=== PATIENT | female | born 1985 | race African-American/Black ===

== ENCOUNTER 2016-08-03 21:06 | Emergency (ER) | payer SELFPAY | END 2016-08-03 21:20 | disposition left against medical advice (07) | LOC: MW.ED 21:06 | DX: Z53.21 Procedure and treatment not carried out due to patient leaving prior to being seen by health care provider (principal) ==

== ENCOUNTER 2016-10-20 09:47 | Emergency (ER) | payer BC | END 2016-10-20 10:29 | disposition home or self-care (01) | LOC: MW.ED 09:47 | DX: Z53.21 Procedure and treatment not carried out due to patient leaving prior to being seen by health care provider (principal) ==

== ENCOUNTER 2016-10-26 11:50 | Emergency (ER) | payer BC ==
[2016-10-26] MEDS ORDERED: Sodium Chloride 0.9% 10 ML Syringe FLUSH PRN (12:19)
[2016-10-26] MEDS ORDERED: Sodium Chloride 0.9% 2.5 ML Syringe FLUSH PRN (12:19)
[2016-10-26 13:09] LABS: CHLORIDE,CL 108 mmol/L (98-110); SODIUM,NA 138 mmol/L (136-146)
[2016-10-26] MEDS ORDERED: Alum Hydrox/Mag Hydrox/Simeth 15 ML, Lidocaine 2% 5 ML PO ONE ×2 (14:13)
--- NOTE | 2016-10-26 15:20 | EDM.PDOC ---
ED HPI GENERAL MEDICAL PROBLEM - General Chief Complaint: Abdominal Pain Stated Complaint: ABDOMINAL PAIN Time Seen by Provider: 10/26/16 11:54 Source of Information: Reports: Patient History Limitations: Reports: No Limitations - History of Present Illness INITIAL COMMENTS - FREE TEXT/NARRATIVE: History of present illness: []She complains of upper and lower abdominal pain, bruising easily and vaginal discharge. Patient denies any bleeding gums when she brushes her teeth or nosebleeds. She denies any trauma state she has bruises on her legs just show up. She denies any pain, fevers, nausea, vomiting, diarrhea or urinary complaints. Patient has been taking Motrin recently for pain. Review of systems: As per history of present illness and below otherwise all systems reviewed and negative. Past medical history: As per history of present illness and as reviewed below otherwise noncontributory. Surgical history: As per history of present illness and as reviewed below otherwise noncontributory. Social history: No reported history of drug or alcohol abuse. Family history: As per history of present illness and as reviewed below otherwise noncontributory. Physical exam: General: Well developed, well nourished in NAD HEENT: Atraumatic, normocephalic, pupils reactive, negative for conjunctival pallor or scleral icterus, mucous membranes moist, throat clear, neck supple, nontender, trachea midline. Lungs: Clear to auscultation, breath sounds equal bilaterally, chest nontender. Heart: S1S2, regular, negative for clicks, rubs, or JVD. Abdomen: Soft, nondistended, epigastric tenderness without rebound or guarding. Negative for masses or hepatosplenomegaly. Negative for costovertebral tenderness. Pelvis: Stable nontender. Genitourinary: Pelvic cultures done no cervical motion tenderness noted Rectal: Deferred. Extremities: Atraumatic, negative for cords or calf pain. Neurovascular unremarkable. Neuro: Awake, alert, oriented. Cranial nerves II through XII unremarkable. Cerebellum unremarkable. Motor and sensory unremarkable throughout. Exam nonfocal. Diagnostics: []Labs within normal limits, vaginal cultures done Therapeutics: [] Impression: []Abdominal pain likely gastritis from NSAIDs Plan: []Follow-up primary care physician, Oswaldo for epigastric pain decrease and NSAID use Definitive disposition and diagnosis as appropriate pending reevaluation and review of above. Lower Abdomen Pain Score (Numeric/FACES): 7 - Related Data Allergies Allergy/AdvReac Type Severity Reaction Status Date / Time No Known Allergies Allergy Verified 10/26/16 12:13 Home Meds: Home Meds . [No Known Home Meds] 10/26/16 [History] Past Medical History HEENT History: Reports: None Cardiovascular History: Reports: None Respiratory History: Reports: None Gastrointestinal History: Reports: None Genitourinary History: Reports: None [employer] History: Reports: None Musculoskeletal History: Reports: None Neurological History: Reports: None Psychiatric History: Reports: None Endocrine/Metabolic History: Reports: None Hematologic History: Reports: None Immunologic History: Reports: None Oncologic (Cancer) History: Reports: None Dermatologic History: Reports: None - Past Surgical History Head Surgeries/Procedures: Reports: None HEENT Surgical History: Reports: None Cardiovascular Surgical History: Reports: None Respiratory Surgical History: Reports: None GI Surgical History: Reports: None Female Surgical History: Reports: None Endocrine Surgical History: Reports: None Neurological Surgical History: Reports: None Musculoskeletal Surgical History: Reports: None Oncologic Surgical History: Reports: None Dermatological Surgical History: Reports: None Social & Family History - Tobacco Use Smoking Status *Q: Current Every Day Smoker Years of Tobacco use: 5 Packs/Tins Daily: 0.2 - Caffeine Use Caffeine Use: Reports: Soda - Recreational Drug Use Recreational Drug Use: No ED ROS GENERAL - Review of Systems Review Of Systems: See Below (See history of present illness) ED EXAM, GI/ABD - Physical Exam Exam: See Below (See history of present illness) Course - Vital Signs Last Recorded V/S: Last Vital Signs Temp 36.2 C 10/26/16 12:08 Pulse 97 10/26/16 12:08 Resp 18 10/26/16 12:08 BP 140/118 H 10/26/16 12:08 Pulse Ox 98 10/26/16 12:08 - Orders/Labs/Meds Orders: Active Orders 24 hr Category Date Time Status CHLAMYDIA TRACHOMATIS/GC AMPLF Stat Lab 10/26/16 14:15 Received TRICH/SHAHRIAR/CAND BY DNA PROBE [MOLEC] Stat Lab 10/26/16 14:15 Received Sodium Chloride 0.9% [Saline Flush] Med 10/26/16 12:19 Active 10 ml FLUSH ASDIRECTED PRN Sodium Chloride 0.9% [Saline Flush] Med 10/26/16 12:19 Active 2.5 ml FLUSH ASDIRECTED PRN Saline Lock Insert [OM.PC] Stat Oth 10/26/16 12:18 Ordered Medication Orders Sodium Chloride (Saline Flush) 10 ml FLUSH ASDIRECTED PRN PRN Reason: Keep Vein Open Last Admin: 10/26/16 14:23 Dose: 10 ml Sodium Chloride (Saline Flush) 2.5 ml FLUSH ASDIRECTED PRN PRN Reason: Keep Vein Open Last Admin: 10/26/16 14:23 Dose: 2.5 ml Labs: Laboratory Tests 10/26/16 10/26/16 10/26/16 Range/Units 12:13 12:13 12:40 WBC 10.10 (4.0-11.0) K/uL RBC 4.69 (4.30-5.90) M/uL Hgb 14.4 (12.0-16.0) g/dL Hct 42.6 (36.0-46.0) % MCV 90.8 (80.0-98.0) fL MCH 30.7 (27.0-32.0) pg MCHC 33.8 (31.0-37.0) g/dL RDW Std Deviation 50.6 (28.0-62.0) fl RDW Coeff of Kirsten 15 (11.0-15.0) % Plt Count 269 (150-400) K/uL MPV 9.30 (7.40-12.00) fL Neut % (Auto) 59.0 (48.0-80.0) % Lymph % (Auto) 31.8 (16.0-40.0) % [place] % (Auto) 6.2 (0.0-15.0) % Eos % (Auto) 2.8 (0.0-7.0) % Baso % (Auto) 0.2 (0.0-1.5) % Neut # (Auto) 6.0 H (1.4-5.7) K/uL Lymph # (Auto) 3.2 H (0.6-2.4) K/uL [place] # (Auto) 0.6 (0.0-0.8) K/uL Eos # (Auto) 0.3 (0.0-0.7) K/uL Baso # (Auto) 0.0 (0.0-0.1) K/uL Nucleated RBC % 0.0 /100WBC Nucleated RBCs # 0 K/uL Sodium (136-146) mmol/L Potassium (3.5-5.1) mmol/L Chloride (98-110) mmol/L Carbon Dioxide (21-31) mmol/L BUN (6.0-23.0) mg/dL Creatinine (0.6-1.5) mg/dL Est Cr Clr Drug Dosing mL/min Estimated GFR (MDRD) ml/min Glucose (60-110) mg/dL Calcium (8.8-10.8) mg/dL Total Bilirubin (0.1-1.5) mg/dL AST (5-40) IU/L ALT (8-54) IU/L Alkaline Phosphatase (40-150) Total Protein (6.0-8.0) g/dL Albumin (3.5-5.0) g/dL Globulin (2.0-3.5) g/dL Albumin/Globulin Ratio (1.3-2.8) Lipase (7-80) U/L Urine Color YELLOW Urine Appearance CLEAR Urine pH 5.5 (5.0-8.0) Ur Specific [place] 1.025 (1.001-1.035) Urine Protein NEGATIVE (NEGATIVE) mg/dL Urine Glucose (UA) NEGATIVE (NEGATIVE) mg/dL Urine Ketones NEGATIVE (NEGATIVE) mg/dL Urine Occult Blood NEGATIVE (NEGATIVE) Urine Nitrite NEGATIVE (NEGATIVE) Urine Bilirubin NEGATIVE (NEGATIVE) Urine Urobilinogen 0.2 (<2.0) EU/dL Ur Leukocyte Esterase NEGATIVE (NEGATIVE) Urine RBC NONE SEEN (0-2/HPF) Urine WBC 0-1 (0-5/HPF) Ur Epithelial Cells OCCASIONAL (NONE-FEW) Urine Bacteria RARE (NEGATIVE) Urine HCG, Qual NEGATIVE (NEGATIVE) 10/26/16 Range/Units 12:40 WBC (4.0-11.0) K/uL RBC (4.30-5.90) M/uL Hgb (12.0-16.0) g/dL Hct (36.0-46.0) % MCV (80.0-98.0) fL MCH (27.0-32.0) pg MCHC (31.0-37.0) g/dL RDW Std Deviation (28.0-62.0) fl RDW Coeff of Kirsten (11.0-15.0) % Plt Count (150-400) K/uL MPV (7.40-12.00) fL Neut % (Auto) (48.0-80.0) % Lymph % (Auto) (16.0-40.0) % [place] % (Auto) (0.0-15.0) % Eos % (Auto) (0.0-7.0) % Baso % (Auto) (0.0-1.5) % Neut # (Auto) (1.4-5.7) K/uL Lymph # (Auto) (0.6-2.4) K/uL [place] # (Auto) (0.0-0.8) K/uL Eos # (Auto) (0.0-0.7) K/uL Baso # (Auto) (0.0-0.1) K/uL Nucleated RBC % /100WBC Nucleated RBCs # K/uL Sodium 138 (136-146) mmol/L Potassium 4.0 (3.5-5.1) mmol/L Chloride 108 (98-110) mmol/L Carbon Dioxide 23 (21-31) mmol/L BUN 8 (6.0-23.0) mg/dL Creatinine 0.8 (0.6-1.5) mg/dL Est Cr Clr Drug Dosing 86.37 mL/min Estimated GFR (MDRD) > 60.0 ml/min Glucose 93 (60-110) mg/dL Calcium 9.5 (8.8-10.8) mg/dL Total Bilirubin 0.5 (0.1-1.5) mg/dL AST 13 (5-40) IU/L ALT 12 (8-54) IU/L Alkaline Phosphatase 58 (40-150) Total Protein 7.4 (6.0-8.0) g/dL Albumin 4.0 (3.5-5.0) g/dL Globulin 3.4 (2.0-3.5) g/dL Albumin/Globulin Ratio 1.2 L (1.3-2.8) Lipase 28 (7-80) U/L Urine Color Urine Appearance Urine pH (5.0-8.0) Ur Specific [place] (1.001-1.035) Urine Protein (NEGATIVE) mg/dL Urine Glucose (UA) (NEGATIVE) mg/dL Urine Ketones (NEGATIVE) mg/dL Urine Occult Blood (NEGATIVE) Urine Nitrite (NEGATIVE) Urine Bilirubin (NEGATIVE) Urine Urobilinogen (<2.0) EU/dL Ur Leukocyte Esterase (NEGATIVE) Urine RBC (0-2/HPF) Urine WBC (0-5/HPF) Ur Epithelial Cells (NONE-FEW) Urine Bacteria (NEGATIVE) Urine HCG, Qual (NEGATIVE) Meds: Medications Generic Name Dose Route Start Last Admin Trade Name Freq PRN Reason Stop Dose Admin Sodium Chloride 10 ml 10/26/16 12:19 10/26/16 14:23 Saline Flush FLUSH 10 ml ASDIRECTED PRN Administration Keep Vein Open Sodium Chloride 2.5 ml 10/26/16 12:19 10/26/16 14:23 Saline Flush FLUSH 2.5 ml ASDIRECTED PRN Administration Keep Vein Open Discontinued Medications Generic Name Dose Route Start Last Admin Trade Name Freq PRN Reason Stop Dose Admin Al Hydroxide/Mg Hydroxide 15 0 ml 10/26/16 14:13 10/26/16 14:23 ml/ Lidocaine HCl 5 ml PO 10/26/16 14:14 1 each ONETIME ONE Administration Departure - Departure Time of Disposition: 15:25 Disposition: Home, Self-Care 01 Condition: Good Clinical Impression: Abdominal pain Qualifiers: Abdominal location: epigastric Qualified Code(s): R10.13 - Epigastric pain - Discharge Information Referrals: PCP,None [Primary Care Provider] - Forms: ED Department Discharge Additional Instructions: The following information is given to patients seen in the emergency department who are being discharged to home. This information is to outline your options for follow-up care. We provide all patients seen in our emergency department with a follow-up referral. The need for follow-up, as well as the timing and circumstances, are variable depending upon the specifics of your emergency department visit. If you don't have a primary care physician on staff, we will provide you with a referral. We always advise you to contact your personal physician following an emergency department visit to inform them of the circumstance of the visit and for follow-up with them and/or the need for any referrals to a consulting specialist. The emergency department will also refer you to a specialist when appropriate. This referral assures that you have the opportunity for follow-up care with a specialist. All of these measure are taken in an effort to provide you with optimal care, which includes your follow-up. Under all circumstances we always encourage you to contact your private physician who remains a resource for coordinating your care. When calling for follow-up care, please make the office aware that this follow-up is from your recent emergency room visit. If for any reason you are refused follow-up, please contact the [facility] Emergency Department at and asked to speak to the emergency department charge nurse. Decrease Motrin use, take Pepcid [id number] for abdominal pain follow-up with primary care [facility] [address] [place] [address] - My Orders Last 24 Hours: My Active Orders 10/26/16 12:18 Saline Lock Insert [OM.PC] Stat 10/26/16 12:19 Sodium Chloride 0.9% [Saline Flush] 10 ml FLUSH ASDIRECTED PRN Sodium Chloride 0.9% [Saline Flush] 2.5 ml FLUSH ASDIRECTED PRN 10/26/16 14:15 CHLAMYDIA TRACHOMATIS/GC AMPLF Stat TRICH/SHAHRIAR/CAND BY DNA PROBE [MOLEC] Stat - Assessment/Plan Last 24 Hours: My Active Orders 10/26/16 12:18 Saline Lock Insert [OM.PC] Stat 10/26/16 12:19 Sodium Chloride 0.9% [Saline Flush] 10 ml FLUSH ASDIRECTED PRN Sodium Chloride 0.9% [Saline Flush] 2.5 ml FLUSH ASDIRECTED PRN 10/26/16 14:15 CHLAMYDIA TRACHOMATIS/GC AMPLF Stat TRICH/SHAHRIAR/CAND BY DNA PROBE [MOLEC] Stat
[2016-10-26 17:18] VITALS: BP 131/92
== END 2016-10-26 16:45 | disposition home or self-care (01) ==
LOC: MW.ED 11:50
DX: N76.0 Acute vaginitis (principal); R10.13 Epigastric pain; F17.210 Nicotine dependence, cigarettes, uncomplicated
CPT/HCPCS: 36415; 80053; 81001; 81025; 83690; 85025; 87480; 87491; 87510; 87591; 87660; 99284; A9270; 99283

== ENCOUNTER 2017-01-19 17:43 | Emergency (ER) | payer SELFPAY | END 2017-01-19 18:21 | disposition left against medical advice (07) | LOC: MW.ED 17:43 | DX: Z53.21 Procedure and treatment not carried out due to patient leaving prior to being seen by health care provider (principal) ==

== ENCOUNTER 2017-01-21 09:24 | Emergency (ER) | payer SELFPAY ==
[2017-01-21] MEDS ORDERED: Ketorolac 30 MG/ML SDV IVPUSH ONE (09:34)
[2017-01-21] MEDS ORDERED: Ondansetron 4 MG/2 ML SDV IVPUSH ONE (09:34)
[2017-01-21] MEDS ORDERED: Sodium Chloride 0.9% 1,000 ML IV ONE (09:34)
--- NOTE | 2017-01-21 09:35 | EDM.PDOC ---
ED HPI GENERAL MEDICAL PROBLEM - General Chief Complaint: Abdominal Pain Stated Complaint: ABDOMINAL PAIN Time Seen by Provider: 01/21/17 09:35 Source of Information: Reports: Patient - History of Present Illness INITIAL COMMENTS - FREE TEXT/NARRATIVE: HISTORY AND PHYSICAL: History of present illness: [Patient is with right upper and lower quadrant increasing in severity today she rated an 8 out of 10 no radiation, some association with food but no clear association with greasy food. She has been in a couple of times to the emergency room for vague abdominal pain over the last several months with no clear diagnosis. No fever nausea vomiting chills sweats no chest pain shortness breath headache dizziness palpitation no bowel or urine symptoms ] Review of systems: As per history of present illness and below otherwise all systems reviewed and negative. Past medical history: As per history of present illness and as reviewed below otherwise noncontributory. Surgical history: As per history of present illness and as reviewed below otherwise noncontributory. Social history: No reported history of drug or alcohol abuse. Family history: As per history of present illness and as reviewed below otherwise noncontributory. Physical exam: HEENT: Atraumatic, normocephalic, pupils reactive, negative for conjunctival pallor or scleral icterus, mucous membranes moist, throat clear, neck supple, nontender, trachea midline. Lungs: Clear to auscultation, breath sounds equal bilaterally, chest nontender. Heart: S1S2, regular, negative for clicks, rubs, or JVD. Abdomen: Soft, nondistended, tenderness on deep palpation right upper quadrant as well as right lower quadrant no guarding or rebound. Negative for masses or hepatosplenomegaly. Negative for costovertebral tenderness. Pelvis: Stable nontender. Genitourinary: Deferred. Rectal: Deferred. Extremities: Atraumatic, negative for cords or calf pain. Neurovascular unremarkable. Neuro: Awake, alert, oriented. Cranial nerves II through XII unremarkable. Cerebellum unremarkable. Motor and sensory unremarkable throughout. Exam nonfocal. Diagnostics: []CBC CMP amylase lipase UA hCG CT abdomen pelvis with contrast Abdomen Limited to evaluate gallbladder and right kidney Ultrasound gallbladder as well as right kidney Therapeutics: []Normal saline 1 L bolus Zofran 8 mg IV Toradol 30 mg IV Aspirin 324 mg now and daily Follow-up with Dr. Du urology 6-8 weeks Follow-up with Dr. 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 right upper quad Pain Score (Numeric/FACES): 8 - Related Data Allergies Allergy/AdvReac Type Severity Reaction Status Date / Time No Known Allergies Allergy Verified 01/21/17 09:36 Home Meds: Home Meds . [No Known Home Meds] 01/21/17 [History] Past Medical History HEENT History: Reports: None Cardiovascular History: Reports: None Respiratory History: Reports: None Gastrointestinal History: Reports: None Genitourinary History: Reports: None RAIL LAYER History: Reports: None Musculoskeletal History: Reports: None Neurological History: Reports: None Psychiatric History: Reports: None Endocrine/Metabolic History: Reports: None Hematologic History: Reports: None Immunologic History: Reports: None Oncologic (Cancer) History: Reports: None Dermatologic History: Reports: None - Past Surgical History Head Surgeries/Procedures: Reports: None HEENT Surgical History: Reports: None Cardiovascular Surgical History: Reports: None Respiratory Surgical History: Reports: None GI Surgical History: Reports: None Female Surgical History: Reports: None Endocrine Surgical History: Reports: None Neurological Surgical History: Reports: None Musculoskeletal Surgical History: Reports: None Oncologic Surgical History: Reports: None Dermatological Surgical History: Reports: None Social & Family History - Tobacco Use Smoking Status *Q: Current Every Day Smoker Years of Tobacco use: 5 Packs/Tins Daily: 0.2 - Caffeine Use Caffeine Use: Reports: Soda - Recreational Drug Use Recreational Drug Use: No ED ROS GENERAL - Review of Systems Review Of Systems: ROS reveals no pertinent complaints other than HPI. ED EXAM, GENERAL - Physical Exam Exam: See Below Course - Vital Signs Last Recorded V/S: Last Vital Signs Temp 98.3 F 01/21/17 09:37 Pulse 89 01/21/17 12:25 Resp 16 01/21/17 12:25 BP 131/86 01/21/17 12:25 Pulse Ox 97 01/21/17 12:25 - Orders/Labs/Meds Orders: Active Orders 24 hr Category Date Time Status EKG Documentation Completion [RC] STAT Care 01/21/17 12:22 Active Abdomen Ltd [US] Stat Exams 01/21/17 12:07 Taken Abdomen Pelvis w Cont [CT] Stat Exams 01/21/17 10:41 Taken CULTURE URINE [RM] Stat Lab 01/21/17 09:50 Received Aspirin Med 01/21/17 14:50 Once 325 mg PO ONETIME ONE Labs: Laboratory Tests 01/21/17 01/21/17 01/21/17 Range/Units 09:49 09:49 09:49 WBC 13.82 H (4.0-11.0) K/uL RBC 4.48 (4.30-5.90) M/uL Hgb 13.7 (12.0-16.0) g/dL Hct 40.8 (36.0-46.0) % MCV 91.1 (80.0-98.0) fL MCH 30.6 (27.0-32.0) pg MCHC 33.6 (31.0-37.0) g/dL RDW Std Deviation 49.9 (28.0-62.0) fl RDW Coeff of Kirsten 15 (11.0-15.0) % Plt Count 287 (150-400) K/uL MPV 9.40 (7.40-12.00) fL Neut % (Auto) 72.6 (48.0-80.0) % Lymph % (Auto) 19.6 (16.0-40.0) % [place] % (Auto) 6.5 (0.0-15.0) % Eos % (Auto) 1.2 (0.0-7.0) % Baso % (Auto) 0.1 (0.0-1.5) % Neut # (Auto) 10.0 H (1.4-5.7) K/uL Lymph # (Auto) 2.7 H (0.6-2.4) K/uL Nicol[place] # (Auto) 0.9 H (0.0-0.8) K/uL Eos # (Auto) 0.2 (0.0-0.7) K/uL Baso # (Auto) 0.0 (0.0-0.1) K/uL Nucleated RBC % 0.0 /100WBC Nucleated RBCs # 0 K/uL Sodium 140 (136-146) mmol/L Potassium 4.8 (3.5-5.1) mmol/L Chloride 108 (98-110) mmol/L Carbon Dioxide 23 (21-31) mmol/L BUN 9 (6.0-23.0) mg/dL Creatinine 0.8 (0.6-1.5) mg/dL Est Cr Clr Drug Dosing 86.37 mL/min Estimated GFR (MDRD) > 60.0 ml/min Glucose 98 (60-110) mg/dL Calcium 9.4 (8.8-10.8) mg/dL Total Bilirubin 0.7 (0.1-1.5) mg/dL AST 25 (5-40) IU/L ALT 19 (8-54) IU/L Alkaline Phosphatase 47 (40-150) Lactate Dehydrogenase 290 H (125-220) IU/L Creatine Kinase (9-236) IU/L CK-MB (CK-2) (0-6.6) ng/ml Troponin I (0.0-0.29) NG/ML Total Protein 7.2 (6.0-8.0) g/dL Albumin 3.8 (3.5-5.0) g/dL Globulin 3.4 (2.0-3.5) g/dL Albumin/Globulin Ratio 1.1 L (1.3-2.8) Amylase 43 (10-90) U/L Lipase 23 (7-80) U/L Urine Color Urine Appearance Urine pH (5.0-8.0) Ur Specific [place] (1.001-1.035) Urine Protein (NEGATIVE) mg/dL Urine Glucose (UA) (NEGATIVE) mg/dL Urine Ketones (NEGATIVE) mg/dL Urine Occult Blood (NEGATIVE) Urine Nitrite (NEGATIVE) Urine Bilirubin (NEGATIVE) Urine Urobilinogen (<2.0) EU/dL Ur Leukocyte Esterase (NEGATIVE) Urine RBC (0-2/HPF) Urine WBC (0-5/HPF) Ur Epithelial Cells (NONE-FEW) Urine Bacteria (NEGATIVE) Urine Mucus (NONE-MOD) Urine HCG, Qual (NEGATIVE) 01/21/17 01/21/17 01/21/17 Range/Units 09:49 09:50 09:50 WBC (4.0-11.0) K/uL RBC (4.30-5.90) M/uL Hgb (12.0-16.0) g/dL Hct (36.0-46.0) % MCV (80.0-98.0) fL MCH (27.0-32.0) pg MCHC (31.0-37.0) g/dL RDW Std Deviation (28.0-62.0) fl RDW Coeff of Kirsten (11.0-15.0) % Plt Count (150-400) K/uL MPV (7.40-12.00) fL Neut % (Auto) (48.0-80.0) % Lymph % (Auto) (16.0-40.0) % Nicollet % (Auto) (0.0-15.0) % Eos % (Auto) (0.0-7.0) % Baso % (Auto) (0.0-1.5) % Neut # (Auto) (1.4-5.7) K/uL Lymph # (Auto) (0.6-2.4) K/uL Nicol[place] # (Auto) (0.0-0.8) K/uL Eos # (Auto) (0.0-0.7) K/uL Baso # (Auto) (0.0-0.1) K/uL Nucleated RBC % /100WBC Nucleated RBCs # K/uL Sodium (136-146) mmol/L Potassium (3.5-5.1) mmol/L Chloride (98-110) mmol/L Carbon Dioxide (21-31) mmol/L BUN (6.0-23.0) mg/dL Creatinine (0.6-1.5) mg/dL Est Cr Clr Drug Dosing mL/min Estimated GFR (MDRD) ml/min Glucose (60-110) mg/dL Calcium (8.8-10.8) mg/dL Total Bilirubin (0.1-1.5) mg/dL AST (5-40) IU/L ALT (8-54) IU/L Alkaline Phosphatase (40-150) Lactate Dehydrogenase (125-220) IU/L Creatine Kinase 76 (9-236) IU/L CK-MB (CK-2) 0.5 (0-6.6) ng/ml Troponin I < 0.10 (0.0-0.29) NG/ML Total Protein (6.0-8.0) g/dL Albumin (3.5-5.0) g/dL Globulin (2.0-3.5) g/dL Albumin/Globulin Ratio (1.3-2.8) Amylase (10-90) U/L Lipase (7-80) U/L Urine Color YELLOW Urine Appearance CLEAR Urine pH 6.0 (5.0-8.0) Ur Specific [place] 1.025 (1.001-1.035) Urine Protein NEGATIVE (NEGATIVE) mg/dL Urine Glucose (UA) NEGATIVE (NEGATIVE) mg/dL Urine Ketones NEGATIVE (NEGATIVE) mg/dL Urine Occult Blood NEGATIVE (NEGATIVE) Urine Nitrite NEGATIVE (NEGATIVE) Urine Bilirubin NEGATIVE (NEGATIVE) Urine Urobilinogen 0.2 (<2.0) EU/dL Ur Leukocyte Esterase NEGATIVE (NEGATIVE) Urine RBC 0-1 (0-2/HPF) Urine WBC 0-1 (0-5/HPF) Ur Epithelial Cells OCCASIONAL (NONE-FEW) Urine Bacteria FEW (NEGATIVE) Urine Mucus LIGHT (NONE-MOD) Urine HCG, Qual NEGATIVE (NEGATIVE) Meds: Medications Discontinued Medications Generic Name Dose Route Start Last Admin Trade Name Krystina PRN Reason Stop Dose Admin Sodium Chloride 1,000 mls @ 999 mls/hr 01/21/17 09:34 01/21/17 10:00 Normal Saline IV 01/21/17 10:34 999 mls/hr STAT ONE Administration Iopamidol 100 ml 01/21/17 11:12 01/21/17 11:15 Isovue-370 (76%) IVPUSH 01/21/17 11:13 100 ml ONETIME STA Administration Ketorolac Tromethamine 30 mg 01/21/17 09:34 01/21/17 09:59 Toradol IVPUSH 01/21/17 09:35 30 mg ONETIME ONE Administration Ondansetron HCl 8 mg 01/21/17 09:34 01/21/17 09:59 Zofran IVPUSH 01/21/17 09:35 8 mg ONETIME ONE Administration Departure - Departure Time of Disposition: 14:50 Disposition: Home, Self-Care 01 Condition: Good Clinical Impression: Renal infarct Abdominal pain Qualifiers: Abdominal location: epigastric Qualified Code(s): R10.13 - Epigastric pain - Discharge Information Referrals: PCP,Unknown [Primary Care Provider] - Forms: ED Department Discharge Additional Instructions: Nursing staff to arrange HIDA scan as well as follow-up with Dr. Josefina general surgery post HIDA scan Sodium referral to follow-up with Dr. Du urology in 6-[address] to evaluate right kidney Recommend aspirin 325 mg by mouth daily, follow-up with Dr. Du urology for further recommendations as above From a gallbladder standpoint recommend bland diet no greasy food Another scanning past the HIDA scan is discussed will be scheduled for you and you will be following with Dr. Rocha general surgeon these appointments should be arranged for you via ER referral Return if symptoms persist or worsen or new concerning symptoms develop [facility] - General Surgery Professional Building [address] [place] [address], [address] [place] [address] [facility] - Urology [address] [place] [id number] The following information is given to patients seen in the emergency department who are being discharged to home. This information is to outline your options for follow-up care. We provide all patients seen in our emergency department with a follow-up referral. The need for follow-up, as well as the timing and circumstances, are variable depending upon the specifics of your emergency department visit. If you don't have a primary care physician on staff, we will provide you with a referral. We always advise you to contact your personal physician following an emergency department visit to inform them of the circumstance of the visit and for follow-up with them and/or the need for any referrals to a consulting specialist. The emergency department will also refer you to a specialist when appropriate. This referral assures that you have the opportunity for follow-up care with a specialist. All of these measure are taken in an effort to provide you with optimal care, which includes your follow-up. Under all circumstances we always encourage you to contact your private physician who remains a resource for coordinating your care. When calling for follow-up care, please make the office aware that this follow-up is from your recent emergency room visit. If for any reason you are refused follow-up, please contact the [facility] emergency department at and asked to speak to the emergency department charge nurse. - My Orders Last 24 Hours: My Active Orders 01/21/17 09:50 CULTURE URINE [RM] Stat 01/21/17 10:41 Abdomen Pelvis w Cont [CT] Stat 01/21/17 12:07 Abdomen Ltd [US] Stat 01/21/17 12:22 EKG Documentation Completion [RC] STAT 01/21/17 14:50 Aspirin 325 mg PO ONETIME ONE - Assessment/Plan Last 24 Hours: My Active Orders 01/21/17 09:50 CULTURE URINE [RM] Stat 01/21/17 10:41 Abdomen Pelvis w Cont [CT] Stat 01/21/17 12:07 Abdomen Ltd [US] Stat 01/21/17 12:22 EKG Documentation Completion [RC] STAT 01/21/17 14:50 Aspirin 325 mg PO ONETIME ONE
[2017-01-21 10:19] LABS: CHLORIDE,CL 108 mmol/L (98-110); SODIUM,NA 140 mmol/L (136-146)
[2017-01-21] MEDS ORDERED: Iopamidol 755 Mg/ML 100 ML Bottle IVPUSH STA (11:12)
[2017-01-21] MEDS ORDERED: Aspirin 325 MG Tab PO ONE (14:50)
[2017-01-21 15:29] VITALS: BP 133/89
--- NOTE | 2017-01-22 14:48 | CT ---
EXAM DATE: 01/21/17 PATIENT'S AGE: 31 Patient: XENA HONG Facility: [place], [place] Site . Site : 1985 Study: CT Abdomen/Pelvis [id number] 11:31:32 AM Ordering Physician: Joby Evans Final Report: HISTORY: Right-sided abdominal pain. TECHNIQUE: Intravenous contrast enhanced CT of the abdomen and pelvis. 100 mL of Isovue- 370 intravenous contrast administered. COMPARISON: No prior. FINDINGS: There is no focal liver parenchymal abnormality. No biliary ductal dilatation. Gallbladder does not appear overly distended. Spleen size within normal limits. Adrenal glands are normal. No focal pancreatic abnormality or peripancreatic inflammatory change. - There is an area of wedge-shaped decreased enhancement involving the inferior pole of the right kidney. Differential considerations include pyelonephritis versus renal infarct. Correlation with urinalysis is recommended. Right renal artery and radial vein appear grossly patent. Left kidney enhances normally. There is no hydronephrosis. Urinary bladder is not well distended and not well evaluated by CT. - There is no small bowel obstruction. No appendicitis. No diverticulitis or definite colitis. No abdominal or pelvic fluid collection. No free air. No abdominal aortic aneurysm. The mesenteric and renal vasculature appears patent. - No acute bony abnormality. - Lung bases are grossly clear. No pleural effusion. IMPRESSION: 1. Wedge-shaped area of decreased attenuation involving the inferior pole of the right kidney with differential considerations including pyelonephritis versus renal artery infarct. Correlation with urinalysis is recommended. Pyelonephritis is statistically more likely in a patient this age. Renal vasculature appears patent. No hydronephrosis. 2. Normal appendix. 3. No other acute process within the abdomen or pelvis. Dictated by Saul Dias MD @ 01/21/2017 11:50:24 AM Dictated by: Saul Dias MD @ 01/21/2017 11:50:29 (Electronic Signature) Report Signed by Proxy. [facility]OSPITALIvone
--- NOTE | 2017-01-22 14:57 | US ---
EXAM DATE: 01/21/17 PATIENT'S AGE: 31 Patient: XENA HONG Facility: [place], [place] Site . Site : 1985 Study: US Abdomen [id number] 1:00:30 PM Ordering Physician: Joby Evans Final Report: HISTORY: Right upper quadrant pain. Abnormal appearance of the inferior aspect of the right kidney at CT. TECHNIQUE: Limited abdominal ultrasound. FINDINGS: There are no gallstones, gallbladder wall thickening or pericholecystic fluid. Gallbladder does not appear excessively distended. There is no intrahepatic biliary ductal dilatation. The extrahepatic bile duct measures 6 mm which is upper limits of normal. No focal liver mass. No abnormality involving the visualized portions of the pancreas. Right kidney measures approximately 10.3 cm in size. There is no right renal mass or hydronephrosis. No alteration of the echogenicity of the inferior aspect of the right kidney seen by ultrasound. IMPRESSION: 1. The area of decreased attenuation involving the right kidney seen on the prior CT is inapparent by ultrasound. Differential considerations still remain pyelonephritis versus small renal infarct based on the CT appearance. 2. Normal gallbladder. 3. Extrahepatic bile duct diameter is upper limits of normal. There is no intrahepatic biliary ductal dilatation. Dictated by Saul Dias MD @ 01/21/2017 2:08:47 PM Dictated by: Saul Dias MD @ 01/21/2017 14:08:54 (Electronic Signature) Report Signed by Proxy. [facility]ITAL[facility]
== END 2017-01-21 15:20 | disposition home or self-care (01) ==
LOC: MW.ED 09:24
DX: N28.0 Ischemia and infarction of kidney (principal); F17.210 Nicotine dependence, cigarettes, uncomplicated
CPT/HCPCS: 36415; 74177; 76705; 80053; 81001; 81025; 82150; 82550; 82553; 83615; 83690; 84484; 85025; 87086; 93005; 96361; 96374; 96375; 99284; A9270; J1885; J2405; J7040; Q9967

== ENCOUNTER 2017-04-26 22:32 | Emergency (ER) | payer BC ==
--- NOTE | 2017-04-26 23:15 | EDM.PDOC ---
ED HPI GENERAL MEDICAL PROBLEM - General Chief Complaint: General Stated Complaint: BRUISING EASILY/WEAK/HEADACHES Time Seen by Provider: 04/26/17 23:15 - History of Present Illness INITIAL COMMENTS - FREE TEXT/NARRATIVE: HISTORY AND PHYSICAL: History of present illness: Patient 32-year-old black female presents with concern of medical screening exam patient states she bruises easily she's been seen for this in passages concern of having her blood tested for some possible etiology. Review of systems: As per history of present illness and below otherwise all systems reviewed and negative. Past medical history: As per history of present illness and as reviewed below otherwise noncontributory. Surgical history: As per history of present illness and as reviewed below otherwise noncontributory. Social history: No reported history of drug or alcohol abuse. Family history: As per history of present illness and as reviewed below otherwise noncontributory. Physical exam: HEENT: Atraumatic, normocephalic, pupils reactive, negative for conjunctival pallor or scleral icterus, mucous membranes moist, throat clear, neck supple, nontender, trachea midline. Lungs: Clear to auscultation, breath sounds equal bilaterally, chest nontender. Heart: S1S2, regular, negative for clicks, rubs, or JVD. Abdomen: Soft, nondistended, nontender. Negative for masses or hepatosplenomegaly. Negative for costovertebral tenderness. Pelvis: Stable nontender. Genitourinary: Deferred. Rectal: Deferred. Extremities: Atraumatic, negative for cords or calf pain. Neurovascular unremarkable. Neuro: Awake, alert, oriented. Cranial nerves II through XII unremarkable. Cerebellum unremarkable. Motor and sensory unremarkable throughout. Exam nonfocal. Diagnostics: CBC PT/INR Therapeutics: None Impression: #1 medical screening exam Definitive disposition and diagnosis as appropriate pending reevaluation and review of above. Generalized Pain Score (Numeric/FACES): 5 - Related Data Allergies Allergy/AdvReac Type Severity Reaction Status Date / Time No Known Allergies Allergy Verified 03/09/17 10:13 Home Meds: Home Meds Antibiotic 1 tab PO ASDIRECTED 03/09/17 [History] Aspirin 1 tab PO ASDIRECTED 03/09/17 [History] Past Medical History HEENT History: Reports: None Cardiovascular History: Reports: None Respiratory History: Reports: None Gastrointestinal History: Reports: Other (See Below) Other Gastrointestinal History: RUQ pain Genitourinary History: Reports: Other (See Below) Other Genitourinary History: rt renal infarct [employer]ING History: Reports: None Musculoskeletal History: Reports: None Neurological History: Reports: None Psychiatric History: Reports: None Endocrine/Metabolic History: Reports: Obesity/BMI 30+ Hematologic History: Reports: None Immunologic History: Reports: None Oncologic (Cancer) History: Reports: None Dermatologic History: Reports: None - Past Surgical History Head Surgeries/Procedures: Reports: None Social & Family History - Family History Family Medical History: Noncontributory - Tobacco Use Smoking Status *Q: Current Every Day Smoker Years of Tobacco use: 5 Packs/Tins Daily: 0.2 - Caffeine Use Caffeine Use: Reports: Soda - Recreational Drug Use Recreational Drug Use: No ED ROS GENERAL - Review of Systems Review Of Systems: ROS reveals no pertinent complaints other than HPI. ED EXAM, GENERAL - Physical Exam Exam: See Below (See dictation) Course - Vital Signs Last Recorded V/S: Last Vital Signs Temp 36.8 C 04/26/17 23:13 Pulse 109 H 04/26/17 23:13 Resp 20 04/26/17 23:13 BP 156/103 H 04/26/17 23:13 Pulse Ox 96 04/26/17 23:13 - Orders/Labs/Meds Labs: Laboratory Tests 04/26/17 04/26/17 Range/Units 23:36 23:36 WBC 13.18 H (4.0-11.0) K/uL RBC 4.09 L (4.30-5.90) M/uL Hgb 12.6 (12.0-16.0) g/dL Hct 37.5 (36.0-46.0) % MCV 91.7 (80.0-98.0) fL MCH 30.8 (27.0-32.0) pg MCHC 33.6 (31.0-37.0) g/dL RDW Std Deviation 54.3 (28.0-62.0) fl RDW Coeff of Kirsten 17 H (11.0-15.0) % Plt Count 309 (150-400) K/uL MPV 9.00 (7.40-12.00) fL Neut % (Auto) 63.2 (48.0-80.0) % Lymph % (Auto) 30.1 (16.0-40.0) % [place] % (Auto) 5.0 (0.0-15.0) % Eos % (Auto) 1.5 (0.0-7.0) % Baso % (Auto) 0.2 (0.0-1.5) % Neut # (Auto) 8.3 H (1.4-5.7) K/uL Lymph # (Auto) 4.0 H (0.6-2.4) K/uL [place] # (Auto) 0.7 (0.0-0.8) K/uL Eos # (Auto) 0.2 (0.0-0.7) K/uL Baso # (Auto) 0.0 (0.0-0.1) K/uL Nucleated RBC % 0.2 /100WBC Nucleated RBCs # 0 K/uL INR 1.02 Departure - Departure Time of Disposition: 23:14 Disposition: Home, Self-Care 01 Condition: Good Clinical Impression: Encounter for medical screening examination - Discharge Information Instructions: Medical Screening Exam Referrals: PCP,None [Primary Care Provider] - Forms: ED Department Discharge Additional Instructions: The following information is given to patients seen in the emergency department who are being discharged to home. This information is to outline your options for follow-up care. We provide all patients seen in our emergency department with a follow-up referral. The need for follow-up, as well as the timing and circumstances, are variable depending upon the specifics of your emergency department visit. If you don't have a primary care physician on staff, we will provide you with a referral. We always advise you to contact your personal physician following an emergency department visit to inform them of the circumstance of the visit and for follow-up with them and/or the need for any referrals to a consulting specialist. The emergency department will also refer you to a specialist when appropriate. This referral assures that you have the opportunity for followup care with a specialist. All of these measure are taken in an effort to provide you with optimal care, which includes your followup. Under all circumstances we always encourage you to contact your private physician who remains a resource for coordinating your care. When calling for followup care, please make the office aware that this follow-up is from your recent emergency room visit. If for any reason you are refused follow-up, please contact the [facility] emergency department at and asked to speak to the emergency department charge nurse. Follow-up primary medical doctor call to schedule appointment return as needed as discussed
[2017-04-27 04:05] VITALS: BP 147/99
== END 2017-04-27 00:33 | disposition home or self-care (01) ==
LOC: MW.ED 22:32
DX: Z13.9 Encounter for screening, unspecified (principal); E66.9 Obesity, unspecified
CPT/HCPCS: 36415; 85025; 85610; 99282; 99283

== ENCOUNTER 2017-05-01 01:32 | Emergency (ER) | payer SELFPAY ==
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
[2017-05-01 02:12] VITALS: BP 133/99
--- NOTE | 2017-05-01 10:39 | CR ---
EXAM DATE: 05/01/17 PATIENT'S AGE: 32 Patient: XENA HONG Facility: [place], [place] Site . Site : 1985 Study: XRay Extremity Left [id number]/27/2018 1:58:51 AM Ordering Physician: Doctor Zabala Final Report: HISTORY: Injury 3 days ago. FINDINGS: Three views of the right hand demonstrates extensive soft tissue swelling of the dorsum of the hand. No acute fracture or dislocation seen. IMPRESSION: Soft tissue swelling of the dorsum hand without acute fracture identified. Dictated by Abbey Maldonado MD @ 05/01/2017 2:00:42 AM Dictated by: Abbey Maldonado MD @ 05/01/2017 02:00:48 (Electronic Signature) Report Signed by Proxy. NENA
== END 2017-05-01 02:10 | disposition home or self-care (01) ==
LOC: MW.ED 01:32
DX: S60.222A Contusion of left hand, initial encounter (principal); F17.210 Nicotine dependence, cigarettes, uncomplicated; W22.8XXA Striking against or struck by other objects, initial encounter
CPT/HCPCS: 73130-26-LT; 73130-LT; 99283

== ENCOUNTER 2017-07-05 04:34 | Emergency (ER) | payer SELFPAY ==
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
[2017-07-05 05:12] LABS: CHLORIDE,CL 105 mmol/L (98-107); SODIUM,NA 138 mmol/L (136-145)
[2017-07-05] MEDS ORDERED: Acetaminophen 500 MG Tab PO ONE (05:55)
[2017-07-05 06:47] VITALS: BP 135/59
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
== END 2017-07-05 06:47 | disposition home or self-care (01) ==
LOC: MW.ED 04:34
DX: S00.83XA Contusion of other part of head, initial encounter (principal); S10.93XA Contusion of unspecified part of neck, initial encounter; S40.022A Contusion of left upper arm, initial encounter; S40.021A Contusion of right upper arm, initial encounter; S09.93XA Unspecified injury of face, initial encounter; E66.9 Obesity, unspecified; Y04.2XXA Assault by strike against or bumped into by another person, initial encounter
CPT/HCPCS: 36415; 70450; 70486; 71045; 80053; 84703; 85025; 99284; A9270

== ENCOUNTER 2017-07-30 20:15 | Emergency (ER) | payer SELFPAY ==
[2017-07-30] MEDS ORDERED: Lidocaine 1% 20 ML MDV INJECT ONE (20:50)
[2017-07-30] MEDS ORDERED: Diphtheria,Pertussis(Acell),Tetanus Vaccine 0.5 ML Syringe IM ONE (20:50)
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
[2017-07-30 22:06] VITALS: BP 128/90
== END 2017-07-30 21:40 | disposition home or self-care (01) ==
LOC: MW.ED 20:15
DX: S71.111A Laceration without foreign body, right thigh, initial encounter (principal); Z23 Encounter for immunization; W26.0XXA Contact with knife, initial encounter; Y93.G3 Activity, cooking and baking
CPT/HCPCS: 90471; 90715; 99282-25

== ENCOUNTER 2017-09-24 12:30 | Emergency (ER) | payer SELFPAY ==
[2017-09-24 13:07] VITALS: BP 156/114
[2017-09-24] MEDS ORDERED: Acetaminophen/HYDROcodone 325-5 MG Tab PO ONE (13:20)
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
--- NOTE | 2017-09-24 18:09 | CT ---
EXAM DATE: 09/24/17 PATIENT'S AGE: 32 Patient: XENA HONG Facility: [place], [place] Site . Site : 1985 Study: CT Head WO CONT [id number]/2018 2:25:52 PM Ordering Physician: Doctor Zabala Final Report: INDICATION: HEAD INJURY. Technique: Non-contrast head CT scan. Findings: No abnormal foci of altered attenuation in the brain parenchyma. No midline shift or mass effect. No hydrocephalus. No abnormal extra-axial fluid collections. No abnormalities identified in the visualized portions of the paranasal sinuses , skull, and scalp. Soft tissue swelling over the right orbit. Impression: No evidence of acute intracranial abnormalities. Dictated by: Shaheen Kurtz MD @ 09/24/2017 14:47:50 (Electronic Signature) Report Signed by Proxy. [facility]
--- NOTE | 2017-09-24 18:10 | CT ---
EXAM DATE: 09/24/17 PATIENT'S AGE: 32 Patient: XENA HONG Facility: [place], [place] Site . Site : 1985 Study: CT Facial WO CONT [id number]/20/2018 2:27:07 PM Ordering Physician: Doctor Zabala Final Report: INDICATION: HEAD INJURY. TECHNIQUE: Noncontrast CT scan of the facial bones with re-formatted images obtained. FINDINGS: Nondisplaced fracture of the medial wall of the left orbit. No other facial bone fractures identified. Mucous in the posterior aspect of the left maxillary sinus. Mild mucous membrane thickening in the ethmoid air cells and maxillary sinuses. Soft tissue swelling over the right orbit. No other bony or soft tissue abnormalities identified. Impression : 1. Nondisplaced fracture of the medial wall of the left orbit. No other facial bone fractures identified. Dictated by Shaheen Kurtz MD @ 09/24/2017 3:01:22 PM Dictated by: Shaheen Kurtz MD @ 09/24/2017 15:01:37 (Electronic Signature) Report Signed by Proxy. [facility]
== END 2017-09-24 16:05 | disposition home or self-care (01) ==
LOC: MW.ED 12:30
DX: S09.90XA Unspecified injury of head, initial encounter (principal); S02.82XA Fracture of other specified skull and facial bones, left side, initial encounter for closed fracture; F17.210 Nicotine dependence, cigarettes, uncomplicated; E66.9 Obesity, unspecified; W21.03XA Struck by baseball, initial encounter
CPT/HCPCS: 70450; 70486; 99284; A9270

== ENCOUNTER 2017-10-29 14:34 | Emergency (ER) | payer SELFPAY ==
--- NOTE | 2017-10-29 14:59 | EDM.PDOC ---
ED HPI GENERAL MEDICAL PROBLEM - General Chief Complaint: Wound Recheck Stated Complaint: STITCHES REMOVAL IN PT' RT HAND Time Seen by Provider: 10/29/17 14:48 - History of Present Illness INITIAL COMMENTS - FREE TEXT/NARRATIVE: HISTORY AND PHYSICAL: History of present illness: Patient's a 32-year-old female presents with a concern of wound check and suture removal for laceration and sutures placed 17 days prior review of prior medical record did recommend patient follow up with her private medical doctor and have suture removal in 10-14 days patient is without any explanation for her delayed presentation. Review of systems: As per history of present illness and below otherwise all systems reviewed and negative. Past medical history: As per history of present illness and as reviewed below otherwise noncontributory. Surgical history: As per history of present illness and as reviewed below otherwise noncontributory. Social history: No reported history of drug or alcohol abuse. Family history: As per history of present illness and as reviewed below otherwise noncontributory. Physical exam: HEENT: Atraumatic, normocephalic, pupils reactive, negative for conjunctival pallor or scleral icterus, mucous membranes moist, throat clear, neck supple, nontender, trachea midline. Lungs: Clear to auscultation, breath sounds equal bilaterally, chest nontender. Heart: S1S2, regular, negative for clicks, rubs, or JVD. Abdomen: Soft, nondistended, nontender. Negative for masses or hepatosplenomegaly. Negative for costovertebral tenderness. Pelvis: Stable nontender. Genitourinary: Deferred. Rectal: Deferred. Extremities: Wound healing well sutures in place on the palmar aspect of the left hand. There is no evidence of superinfection CMS neurovascular is unremarkable Neuro: Awake, alert, oriented. Cranial nerves II through XII unremarkable. Cerebellum unremarkable. Motor and sensory unremarkable throughout. Exam nonfocal. Diagnostics: None Therapeutics: None Impression: #1 wound check and suture removal left hand #2 medical noncompliance Definitive disposition and diagnosis as appropriate pending reevaluation and review of above. left hand wound Pain Score (Numeric/FACES): 7 - Related Data Allergies Allergy/AdvReac Type Severity Reaction Status Date / Time No Known Allergies Allergy Verified 10/29/17 14:55 Home Meds: Home Meds . [No Known Home Meds] 10/12/17 [History] Past Medical History - Past Health History Medical/Surgical History: Denies Medical/Surgical History HEENT History: Reports: None Cardiovascular History: Reports: None Respiratory History: Reports: None Gastrointestinal History: Reports: None Other Gastrointestinal History: RUQ pain Genitourinary History: Reports: Other (See Below) Other Genitourinary History: rt renal infarct OLIVE PICKER History: Reports: None Musculoskeletal History: Reports: None Neurological History: Reports: None Psychiatric History: Reports: None Endocrine/Metabolic History: Reports: Obesity/BMI 30+ Hematologic History: Reports: None Immunologic History: Reports: None Oncologic (Cancer) History: Reports: None Dermatologic History: Reports: None - Infectious Disease History Infectious Disease History: Reports: None - Past Surgical History Head Surgeries/Procedures: Reports: None Social & Family History - Family History Family Medical History: Noncontributory - Caffeine Use Caffeine Use: Reports: Tea ED ROS GENERAL - Review of Systems Review Of Systems: ROS reveals no pertinent complaints other than HPI. ED EXAM, GENERAL - Physical Exam Exam: See Below (See dictation) Course - Vital Signs Last Recorded V/S: Last Vital Signs Temp 36.0 C 10/29/17 14:54 Pulse 91 10/29/17 14:54 Resp 16 10/29/17 14:54 BP 127/84 10/29/17 14:54 Pulse Ox 96 10/29/17 14:54 Departure - Departure Time of Disposition: 14:57 Disposition: Home, Self-Care 01 Condition: Good Clinical Impression: Visit for wound check, Visit for suture removal, Medical non-compliance - Discharge Information *PRESCRIPTION DRUG MONITORING PROGRAM REVIEWED*: Not Applicable *COPY OF PRESCRIPTION DRUG MONITORING REPORT IN PATIENT ANTHONY: Not Applicable Referrals: PCP,None [Primary Care Provider] - Additional Instructions: The following information is given to patients seen in the emergency department who are being discharged to home. This information is to outline your options for follow-up care. We provide all patients seen in our emergency department with a follow-up referral. The need for follow-up, as well as the timing and circumstances, are variable depending upon the specifics of your emergency department visit. If you don't have a primary care physician on staff, we will provide you with a referral. We always advise you to contact your personal physician following an emergency department visit to inform them of the circumstance of the visit and for follow-up with them and/or the need for any referrals to a consulting specialist. The emergency department will also refer you to a specialist when appropriate. This referral assures that you have the opportunity for followup care with a specialist. All of these measure are taken in an effort to provide you with optimal care, which includes your followup. Under all circumstances we always encourage you to contact your private physician who remains a resource for coordinating your care. When calling for followup care, please make the office aware that this follow-up is from your recent emergency room visit. If for any reason you are refused follow-up, please contact the [facility] emergency department at and asked to speak to the emergency department charge nurse. Follow-up primary medical doctor return as needed as discussed
[2017-10-29 15:07] VITALS: BP 123/85
== END 2017-10-29 15:04 | disposition home or self-care (01) ==
LOC: MW.ED 14:34
DX: S61.412D Laceration without foreign body of left hand, subsequent encounter (principal); I10 Essential (primary) hypertension; F17.210 Nicotine dependence, cigarettes, uncomplicated; W19.XXXD Unspecified fall, subsequent encounter; Z91.19 Patient's noncompliance with other medical treatment and regimen
CPT/HCPCS: 99282

== ENCOUNTER 2017-11-05 19:53 | Emergency (ER) | payer SELFPAY ==
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
[2017-11-05 20:22] VITALS: BP 137/98
[2017-11-05] MEDS ORDERED: Bacitracin Oint 1 GM U/D Packet TOP ONE (22:04)
[2017-11-05] MEDS ORDERED: Acetaminophen/HYDROcodone 325-5 MG Tab PO ONE (22:04)
--- NOTE | 2017-11-06 09:35 | CT ---
EXAM DATE: 11/05/17 PATIENT'S AGE: 32 Patient: XENA HONG Facility: [place], [place] Site . Site : 1985 Study: CT Head [id number]/1/2018 9:14:01 PM Ordering Physician: Doctor Zabala Final Report: INDICATION: Headache TECHNIQUE: CT Head without i.v. contrast. CONTRAST: None COMPARISON: None FINDINGS: CSF space: The ventricles are normal for age. Brain: No evidence of mass, acute infarction or hemorrhage is seen. No mass- effect or midline shift is seen. The brain parenchyma is otherwise normal in appearance with preservation of the dillard-white matter junction. Calvarium: The visualized paranasal sinuses are well aerated. The mastoid air cells are clear. The visualized orbits are grossly unremarkable. The calvarium is unremarkable in appearance with no fractures identified. IMPRESSION: 1. No evidence of acute infarction, intracranial hemorrhage, or mass-effect seen. Please note that all CT scans at this facility use dose modulation, iterative reconstruction, and/or weight-based dosing when appropriate to reduce radiation dose to as low as reasonably achievable. Dictated by: Keith Fernandez MD @ 11/05/2017 21:19:11 (Electronic Signature) Report Signed by Proxy. [facility]
--- NOTE | 2017-11-06 09:36 | CT ---
EXAM DATE: 11/05/17 PATIENT'S AGE: 32 Patient: XENA HONG Facility: [place], [place] Site . Site : 1985 Study: CT Facial [id number]/1/2018 9:14:50 PM Ordering Physician: Doctor Zabala Final Report: INDICATION: Face injury from a fall TECHNIQUE: CT maxillofacial without i.v. contrast. Coronal and sagittal reformats were obtained. 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 Fracture along the anterior alveolar ridges of teeth 7, 8 and 9 noted. The remainder of the facial bones and mandible are unremarkable in appearance. Joint: The temporomandibular joints are unremarkable in appearance. Sinus: Mild mucosal thickening is seen in the right maxillary sinus, left ethmoid air cells and left frontal sinus. Small amount retained secretions seen within the right sphenoid sinus. The ostiomeatal units are patent. The nasal turbinates are normal. The nasal septum is midline and intact. Orbit: The visualized orbits are grossly unremarkable. Soft tissue: Moderate soft tissue swelling in the upper lip is noted. IMPRESSIONS: 1. Fracture along the anterior alveolar ridges of teeth 7, 8 and 9 noted. 2. 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 The chronicity of this finding is uncertain. Dictated by Keith Fernandez MD @ 11/05/2017 9:26:46 PM Please note that all CT scans at this facility use dose modulation, iterative reconstruction, and/or weight-based dosing when appropriate to reduce radiation dose to as low as reasonably achievable. Dictated by: Keith Fernandez MD @ 11/05/2017 21:26:51 (Electronic Signature) Report Signed by Proxy. [facility]
--- NOTE | 2017-11-06 09:37 | CT ---
EXAM DATE: 11/05/17 PATIENT'S AGE: 32 Patient: XENA HONG Facility: [place], [place] Site . Site : 1985 Study: CT Spine Cervical [id number]/2018 9:15:18 PM Ordering Physician: Doctor Zabala Final Report: INDICATION: Neck Pain, fall TECHNIQUE: CT cervical spine without i.v. contrast. Coronal and sagittal reformats were obtained. CONTRAST: None COMPARISON: None FINDINGS: Alignment: Unremarkable. Bone: No acute fractures or aggressive bone lesions are identified. Disc: The disc spaces are unremarkable in appearance. The facet joints are unremarkable. Soft tissue: The prevertebral soft tissues are unremarkable in appearance. The visualized lung apices and mediastinum are unremarkable. IMPRESSION: 1. No acute osseous injuries are identified. Please note that all CT scans at this facility use dose modulation, iterative reconstruction, and/or weight-based dosing when appropriate to reduce radiation dose to as low as reasonably achievable. Dictated by: Keith Fernandez MD @ 11/05/2017 21:30:24 (Electronic Signature) Report Signed by Proxy. [facility]
== END 2017-11-05 22:34 | disposition home or self-care (01) ==
LOC: MW.ED 19:53
DX: S01.511A Laceration without foreign body of lip, initial encounter (principal); S16.1XXA Strain of muscle, fascia and tendon at neck level, initial encounter; S09.90XA Unspecified injury of head, initial encounter; W17.89XA Other fall from one level to another, initial encounter
CPT/HCPCS: 12011; 70450; 70486; 72125; 99284; A9270

== ENCOUNTER 2019-10-16 11:21 | Observation (INO) | payer SELFPAY ==
[2019-10-16] MEDS ORDERED: Sodium Chloride 0.9% 2.5 ML Syringe FLUSH PRN ×2 (11:26→14:58)
[2019-10-16] MEDS ORDERED: Sodium Chloride 0.9% 10 ML Syringe FLUSH PRN (11:26)
[2019-10-16] MEDS ORDERED: Pantoprazole 40 MG in Sodium Chloride 0.9% 20 ML IVPUSH ONE (11:27)
--- NOTE | 2019-10-16 11:32 | EDM.PDOC ---
ED HPI GENERAL MEDICAL PROBLEM - General Stated Complaint: CHEST PAIN, VOMITING Time Seen by Provider: 10/16/19 11:25 - History of Present Illness INITIAL COMMENTS - FREE TEXT/NARRATIVE: HPI this 34-year-old female began to have chest pain and feel weak and vomited this morning. After first vomitus her next was associated with more pain and blood in the vomitus. She is vomited black coffee-ground material since. The patient feels a little bit weak but not lightheaded not diaphoretic. Nothing makes it better or worse. She is never had this before. She is not treated on a blood thinner and she does not have any history of GI disturbance. History of present illness: [] Review of systems: As per history of present illness and below otherwise all systems reviewed and negative. Past medical history: As per history of present illness and as reviewed below otherwise noncontributory. Surgical history: As per history of present illness and as reviewed below otherwise noncontributory. Social history: No reported history of drug or alcohol abuse. The patient does smoke less than 1 pack a day Family history: As per history of present illness and as reviewed below otherwise noncontributory. There is no history of atherosclerotic disease but the father has a pacemaker Physical exam: Constitutional - well developed, well-nourished and in no acute distress HEENT - normocephalic, no evidence of trauma - external nose and mouth normal - no mass in neck and no JVD - mucosae moist EYES - full EOM, PERRL, no icterus - no evidence of inflammation, injection, or drainage Respiratory - no respiratory distress, equal bilateral expansion, lungs clear to auscultation and no abnormal lung sounds Cardiovascular - Regular Rhythm with S1 and S2 appreciated and no murmur, gallop or rub. GI - abdomen soft without distension or organomegaly - normal bowel sounds - no guard or rebound Musculoskeletal no gross deformity of long bones or joints - no tenderness, swelling or edema Neurologic - Alert and oriented times four - CN II-XII grossly intact - motor sensory and coordination symmetrically normal Psychiatric - appropriate mood and affect with normal thought content Hematologic - No petechiae or purpura - mucosa appropriate color and sclera not pale - normal nail bed color and refill Integument - no rash or evidence of trauma - normal turgor Diagnostics: [] Therapeutics: [] Impression: [] Plan: [] Definitive disposition and diagnosis as appropriate pending reevaluation and review of above. chest Pain Score (Numeric/FACES): 7 - Related Data Allergies Allergy/AdvReac Type Severity Reaction Status Date / Time No Known Allergies Allergy Verified 10/16/19 11:50 Home Meds: Home Meds . [No Known Home Meds] 10/16/19 [History] Past Medical History - Past Health History Medical/Surgical History: Denies Medical/Surgical History HEENT History: Reports: None Cardiovascular History: Reports: None Respiratory History: Reports: None Gastrointestinal History: Reports: None Other Gastrointestinal History: RUQ pain Genitourinary History: Reports: Other (See Below) Other Genitourinary History: rt renal infarct [employer] History: Reports: None Musculoskeletal History: Reports: None Neurological History: Reports: None Psychiatric History: Reports: None Endocrine/Metabolic History: Reports: Obesity/BMI 30+ Hematologic History: Reports: None Immunologic History: Reports: None Oncologic (Cancer) History: Reports: None Dermatologic History: Reports: None - Infectious Disease History Infectious Disease History: Reports: None - Past Surgical History Head Surgeries/Procedures: Reports: None Social & Family History - Family History Family Medical History: Noncontributory - Caffeine Use Caffeine Use: Reports: Soda ED ROS GENERAL - Review of Systems Review Of Systems: Comprehensive ROS is negative, except as noted in HPI. ED EXAM, GENERAL - Physical Exam Exam: See Below Free Text/Narrative:: My physical exam as in the HPI EKG INTERPRETATION EKG Date: 10/16/19 Rhythm: NSR Rate (Beats/Min): 95 P-Wave: Present QRS: Normal Comparison: No Change (Compared to 01/21/2017) EKG Interpretation Comments: No acute ischemia Course - Vital Signs Text/Narrative:: 12:39 PM the pain was relieved with 2 nitroglycerin in a stepwise fashion. Chest x-ray is unremarkable with no acute disease. The patient is a smoker and her pain went away easily with nitroglycerin as well as the addition of the Perri-Castelan tear making it a more confusing picture I discussed the case with the hospitalist we put the patient in observation to rule out acute coronary syndrome and then arrange for outpatient evaluation unless her enzymes rise. Should rise then she will be referred for immediate cardiology evaluation. Last Recorded V/S: Last Vital Signs Temp 97.1 F 10/16/19 11:26 Pulse 73 10/16/19 13:45 Resp 17 10/16/19 13:45 BP 150/101 H 10/16/19 13:45 Pulse Ox 100 10/16/19 13:45 - Orders/Labs/Meds Orders: Active Orders 24 hr Category Date Time Status Admission Status [Patient Status] [ADT] Stat ADT 10/16/19 14:04 Active EKG Documentation Completion [RC] AM Care 10/16/19 11:26 Active Nitroglycerin [Nitrostat] Med 10/16/19 11:56 Active 0.4 mg SL Q5M PRN Sodium Chloride 0.9% [Saline Flush] Med 10/16/19 11:26 Active 10 ml FLUSH ASDIRECTED PRN Sodium Chloride 0.9% [Saline Flush] Med 10/16/19 11:26 Active 2.5 ml FLUSH ASDIRECTED PRN Saline Lock Insert [OM.PC] Stat Oth 10/16/19 11:26 Ordered Medication Orders Nitroglycerin (Nitrostat) 0.4 mg SL Q5M PRN PRN Reason: Chest Pain Last Admin: 10/16/19 12:09 Dose: 0.4 mg Documented by: Admin: 10/16/19 12:02 Dose: 0.4 mg Documented by: DULCE Sodium Chloride (Saline Flush) 10 ml FLUSH ASDIRECTED PRN PRN Reason: Keep Vein Open Last Admin: 10/16/19 11:55 Dose: 10 ml Documented by: DULCE Sodium Chloride (Saline Flush) 2.5 ml FLUSH ASDIRECTED PRN PRN Reason: Keep Vein Open Last Admin: 10/16/19 11:55 Dose: 2.5 ml Documented by: DULCE Labs: Laboratory Tests 10/16/19 10/16/19 10/16/19 Range/Units 11:26 12:15 12:15 WBC 6.59 (4.0-11.0) K/uL RBC 4.10 L (4.30-5.90) M/uL Hgb 13.1 (12.0-16.0) g/dL Hct 39.3 (36.0-46.0) % MCV 95.9 (80.0-98.0) fL MCH 32.0 (27.0-32.0) pg MCHC 33.3 (31.0-37.0) g/dL RDW Std Deviation 54.5 (28.0-62.0) fl RDW Coeff of Kirsten 16 H (11.0-15.0) % Plt Count 292 (150-400) K/uL MPV 9.90 (7.40-12.00) fL Neut % (Auto) 44.5 L (48.0-80.0) % Lymph % (Auto) 43.6 H (16.0-40.0) % [place] % (Auto) 8.8 (0.0-15.0) % Eos % (Auto) 2.6 (0.0-7.0) % Baso % (Auto) 0.5 (0.0-1.5) % Neut # (Auto) 2.9 (1.4-5.7) K/uL Lymph # (Auto) 2.9 H (0.6-2.4) K/uL [place] # (Auto) 0.6 (0.0-0.8) K/uL Eos # (Auto) 0.2 (0.0-0.7) K/uL Baso # (Auto) 0.0 (0.0-0.1) K/uL Nucleated RBC % 0.0 /100WBC Nucleated RBCs # 0 K/uL INR 0.96 Sodium 144 (136-145) mmol/L Potassium 3.9 (3.5-5.1) mmol/L Chloride 110 H (98-107) mmol/L Carbon Dioxide 24.3 (21.0-32.0) mmol/L BUN 9 (7.0-18.0) mg/dL Creatinine 0.7 (0.6-1.0) mg/dL Est Cr Clr Drug Dosing 95.94 mL/min Estimated GFR (MDRD) > 60.0 ml/min Glucose 82 (74-106) mg/dL Calcium 7.6 L (8.5-10.1) mg/dL Total Bilirubin 0.1 L (0.2-1.0) mg/dL AST 17 (15-37) IU/L ALT 26 (14-63) IU/L Alkaline Phosphatase 54 (46-116) U/L Troponin I < 0.050 (0.000-0.056) ng/mL Total Protein 6.8 (6.4-8.2) g/dL Albumin 3.5 (3.4-5.0) g/dL Globulin 3.3 (2.6-4.0) g/dL Albumin/Globulin Ratio 1.1 (0.9-1.6) Lipase 290 (73-393) U/L HCG, Qual (NEG) 10/16/19 Range/Units 12:15 WBC (4.0-11.0) K/uL RBC (4.30-5.90) M/uL Hgb (12.0-16.0) g/dL Hct (36.0-46.0) % MCV (80.0-98.0) fL MCH (27.0-32.0) pg MCHC (31.0-37.0) g/dL RDW Std Deviation (28.0-62.0) fl RDW Coeff of Kirsten (11.0-15.0) % Plt Count (150-400) K/uL MPV (7.40-12.00) fL Neut % (Auto) (48.0-80.0) % Lymph % (Auto) (16.0-40.0) % [place] % (Auto) (0.0-15.0) % Eos % (Auto) (0.0-7.0) % Baso % (Auto) (0.0-1.5) % Neut # (Auto) (1.4-5.7) K/uL Lymph # (Auto) (0.6-2.4) K/uL [place] # (Auto) (0.0-0.8) K/uL Eos # (Auto) (0.0-0.7) K/uL Baso # (Auto) (0.0-0.1) K/uL Nucleated RBC % /100WBC Nucleated RBCs # K/uL INR Sodium (136-145) mmol/L Potassium (3.5-5.1) mmol/L Chloride (98-107) mmol/L Carbon Dioxide (21.0-32.0) mmol/L BUN (7.0-18.0) mg/dL Creatinine (0.6-1.0) mg/dL Est Cr Clr Drug Dosing mL/min Estimated GFR (MDRD) ml/min Glucose (74-106) mg/dL Calcium (8.5-10.1) mg/dL Total Bilirubin (0.2-1.0) mg/dL AST (15-37) IU/L ALT (14-63) IU/L Alkaline Phosphatase (46-116) U/L Troponin I (0.000-0.056) ng/mL Total Protein (6.4-8.2) g/dL Albumin (3.4-5.0) g/dL Globulin (2.6-4.0) g/dL Albumin/Globulin Ratio (0.9-1.6) Lipase (73-393) U/L HCG, Qual NEGATIVE (NEG) Meds: Medications Generic Name Dose Route Start Last Admin Trade Name Freq PRN Reason Stop Dose Admin Nitroglycerin 0.4 mg 10/16/19 11:56 10/16/19 12:09 Nitrostat SL 0.4 mg Q5M PRN Administration Chest Pain Sodium Chloride 10 ml 10/16/19 11:26 10/16/19 11:55 Saline Flush FLUSH 10 ml ASDIRECTED PRN Administration Keep Vein Open Sodium Chloride 2.5 ml 10/16/19 11:26 10/16/19 11:55 Saline Flush FLUSH 2.5 ml ASDIRECTED PRN Administration Keep Vein Open Discontinued Medications Generic Name Dose Route Start Last Admin Trade Name Freq PRN Reason Stop Dose Admin Pantoprazole Sodium 40 mg/ 20 mls @ 420 mls/hr 10/16/19 11:27 10/16/19 11:51 Sodium Chloride IVPUSH 10/16/19 11:29 420 mls/hr ONETIME ONE Administration Ondansetron HCl Confirm 10/16/19 11:37 10/16/19 11:54 Zofran Administered 10/16/19 11:38 Not Given Dose 4 mg .ROUTE .STK-MED ONE Ondansetron HCl 4 mg 10/16/19 11:51 10/16/19 11:55 Zofran IVPUSH 10/16/19 11:52 4 mg ONETIME ONE Administration Departure - Departure Time of Disposition: 14:16 Disposition: Refer to Observation Condition: Good Clinical Impression: Chest pain - Discharge Information Referrals: PCP,None [Primary Care Provider] - Sepsis Event Note (ED) - Focused Exam Vital Signs: Vital Signs Temp Pulse Resp BP BP Pulse Ox 10/16/19 13:45 73 17 150/101 H 100 10/16/19 13:15 86 18 132/82 100 10/16/19 12:09 153/87 H 10/16/19 12:02 161/97 H 10/16/19 11:26 97.1 F 89 20 150/102 H 99 - My Orders Last 24 Hours: My Active Orders 10/16/19 11:26 EKG Documentation Completion [RC] AM Sodium Chloride 0.9% [Saline Flush] 10 ml FLUSH ASDIRECTED PRN Sodium Chloride 0.9% [Saline Flush] 2.5 ml FLUSH ASDIRECTED PRN Saline Lock Insert [OM.PC] Stat 10/16/19 11:56 Nitroglycerin [Nitrostat] 0.4 mg SL Q5M PRN 10/16/19 14:04 Admission Status [Patient Status] [ADT] Stat - Assessment/Plan Last 24 Hours: My Active Orders 10/16/19 11:26 EKG Documentation Completion [RC] AM Sodium Chloride 0.9% [Saline Flush] 10 ml FLUSH ASDIRECTED PRN Sodium Chloride 0.9% [Saline Flush] 2.5 ml FLUSH ASDIRECTED PRN Saline Lock Insert [OM.PC] Stat 10/16/19 11:56 Nitroglycerin [Nitrostat] 0.4 mg SL Q5M PRN 10/16/19 14:04 Admission Status [Patient Status] [ADT] Stat
[2019-10-16] MEDS ORDERED: Ondansetron 4 MG/2 ML SDV ONE (11:37)
[2019-10-16] MEDS ORDERED: Ondansetron 4 MG/2 ML SDV IVPUSH ONE (11:51)
[2019-10-16] MEDS: Nitroglycerin 0.4 MG Tab.SL SL PRN ×3 (12:02→16:17)
[2019-10-16 12:50] LABS: BLOOD UREA NITROGEN,BUN 9 mg/dL (7.0-18.0); CARBON DIOXIDE,CO2 24.3 mmol/L (21.0-32.0); CHLORIDE,CL 110 mmol/L (98-107); GLUCOSE RANDOM 82 mg/dL (74-106); LIPASE 290 U/L (73-393); POTASSIUM,K 3.9 mmol/L (3.5-5.1); SODIUM,NA 144 mmol/L (136-145)
--- NOTE | 2019-10-16 13:26 | CR ---
Chest: Portable view of the chest was obtained. Comparison: Prior chest x-ray of 07/05/17. Heart size and mediastinum are normal. Lungs are clear with no acute parenchymal change. Bony structures are grossly intact. Impression: 1. Nothing acute is appreciated on portable chest x-ray. Diagnostic code #1 This report was dictated in MDT
[2019-10-16] MEDS ORDERED: Ondansetron 4 MG/2 ML SDV IVPUSH PRN (14:55)
[2019-10-16] MEDS ORDERED: Morphine 2 MG/ML SYRINGE IVPUSH PRN (14:55)
[2019-10-16] MEDS ORDERED: Acetaminophen 325 MG Tab PO PRN (14:55)
--- NOTE | 2019-10-16 15:46 | PCM.HP.2 ---
H&P History of Present Illness - General Date of Service: 10/16/19 Admit Problem/Dx: Admission Diagnosis/Problem Admission Diagnosis/Problem Chest pain, acute Upper GI bleeding Source of Information: Patient History Limitations: Reports: No Limitations - History of Present Illness Initial Comments - Free Text/Narative: This 34 year old female with pmh of obesity and tobacco use presented to the ED with concerns of chest pain and coffee ground emesis today. She reports she had a black stool a couple days ago and then today started having a burning heavy chest pain then she vomited, small streaking of bright red blood noted, but mostly coffee ground emesis, her last emesis was around 11 am today. She reports the pain was improved with Nitro in the ED, but it comes in waves. The pain does radiate to her back and she has some nausea. No diaphoresis or dyspnea. No fever or chills. No other abdominal pain. No urinary concerns, but reports CVA tenderness. No history of this in the past. She reports she has been taking more NSAIDs recently due to menses cramping. Rare alcohol use. Never had an EGD before. She denies history of DM, CAD or COPD. No family history of CAD, father had a pacemaker placed, but no [place]. She reports 1/2 ppd tobacco use and no recreational drug use. In the ED hgb 13.1. BMP WNL. Troponin negative. HCG negative COVID negative. CXR negative for acute cardiopulmonary concerns. BP was noted to be elevated 150-160/90-100s, improved after Nitro x 2. pain improved with Nitro as well. Protonix and Zofran administered as well. EKG revealed SR with no acute ischemic changes. She will be admitted secondary to chest pain rule out ACS and acute u pper GI bleed. chest Pain Score (Numeric/FACES): 7 - Related Data Allergies/Adverse Reactions: Allergies Allergy/AdvReac Type Severity Reaction Status Date / Time No Known Allergies Allergy Verified 10/16/19 16:21 Home Medications: Home Meds . [No Known Home Meds] 10/16/19 [History] Past Medical History - Past Health History Medical/Surgical History: Denies Medical/Surgical History HEENT History: Reports: None Cardiovascular History: Reports: None. Denies: Afib, Blood Clots/VTE/DVT, Hypertension Respiratory History: Reports: None. Denies: COPD Gastrointestinal History: Reports: None Other Gastrointestinal History: RUQ pain Genitourinary History: Reports: Other (See Below) Other Genitourinary History: rt renal infarct [employer] History: Reports: None Musculoskeletal History: Reports: None Neurological History: Reports: None Psychiatric History: Reports: None Endocrine/Metabolic History: Reports: Obesity/BMI 30+ Hematologic History: Reports: None Immunologic History: Reports: None Oncologic (Cancer) History: Reports: None Dermatologic History: Reports: None - Infectious Disease History Infectious Disease History: Reports: None - Past Surgical History Head Surgeries/Procedures: Reports: None Social & Family History - Family History Family Medical History: Noncontributory - Tobacco Use Smoking Status *Q: Current Some Day Smoker Years of Tobacco use: 2 Packs/Tins Daily: 0.1 - Caffeine Use Caffeine Use: Reports: Soda - Recreational Drug Use Recreational Drug Use: No H&P Review of Systems - Review of Systems: Review Of Systems: See Below General: Reports: Malaise. Denies: Fever, Chills, Fatigue Pulmonary: Denies: Shortness of Breath Cardiovascular: Reports: Chest Pain (burning heaviness epigastric and mid sternal) Gastrointestinal: Reports: Abdominal Pain (epigastric with radiation to back), Black Stool, Hematemesis (reports it was "black") Genitourinary: Reports: No Symptoms. Denies: Dysuria, Frequency, Burning Skin: Reports: No Symptoms. Denies: Erythema, Wound Neurological: Reports: No Symptoms Hematologic/Lymphatic: Reports: No Symptoms Immunologic: Reports: No Symptoms Exam - Exam Exam: See Below - Vital Signs Vital Signs: Last Vital Signs Temp 97.1 F 10/16/19 11:26 Pulse 73 10/16/19 13:45 Resp 17 10/16/19 13:45 BP 150/101 H 10/16/19 13:45 Pulse Ox 100 10/16/19 13:45 Weight: 122 kg - Exam General: Alert, Oriented, Cooperative, Mild Distress (epigastric pain 7/10, comes in waves and then calms down) Lungs: Clear to Auscultation, Normal Respiratory Effort Cardiovascular: Regular Rate, Regular Rhythm, Normal S1, Normal S2. No: Systolic Murmur GI/Abdominal Exam: Normal Bowel Sounds, Soft, Tender (epigastric) Extremities: Normal Inspection, Normal Range of Motion, Non-Tender, No Pedal Edema Neuro Extensive - Mental Status: Alert, Oriented x3, Normal Mood/Affect Neuro Extensive - Motor, Sensory, Reflexes: CN II-XII Intact Psychiatric: Alert, Normal Affect, Normal Mood - Patient Data Lab Results Last 24 hrs: Laboratory Results - last 24 hr 10/16/19 10/16/19 10/16/19 Range/Units 11:26 12:15 12:15 WBC 6.59 (4.0-11.0) K/uL RBC 4.10 L (4.30-5.90) M/uL Hgb 13.1 (12.0-16.0) g/dL Hct 39.3 (36.0-46.0) % MCV 95.9 (80.0-98.0) fL MCH 32.0 (27.0-32.0) pg MCHC 33.3 (31.0-37.0) g/dL RDW Std Deviation 54.5 (28.0-62.0) fl RDW Coeff of Kirsten 16 H (11.0-15.0) % Plt Count 292 (150-400) K/uL MPV 9.90 (7.40-12.00) fL Neut % (Auto) 44.5 L (48.0-80.0) % Lymph % (Auto) 43.6 H (16.0-40.0) % [place] % (Auto) 8.8 (0.0-15.0) % Eos % (Auto) 2.6 (0.0-7.0) % Baso % (Auto) 0.5 (0.0-1.5) % Neut # (Auto) 2.9 (1.4-5.7) K/uL Lymph # (Auto) 2.9 H (0.6-2.4) K/uL [place] # (Auto) 0.6 (0.0-0.8) K/uL Eos # (Auto) 0.2 (0.0-0.7) K/uL Baso # (Auto) 0.0 (0.0-0.1) K/uL Nucleated RBC % 0.0 /100WBC Nucleated RBCs # 0 K/uL INR 0.96 Sodium 144 (136-145) mmol/L Potassium 3.9 (3.5-5.1) mmol/L Chloride 110 H (98-107) mmol/L Carbon Dioxide 24.3 (21.0-32.0) mmol/L BUN 9 (7.0-18.0) mg/dL Creatinine 0.7 (0.6-1.0) mg/dL Est Cr Clr Drug Dosing 95.94 mL/min Estimated GFR (MDRD) > 60.0 ml/min Glucose 82 (74-106) mg/dL Hemoglobin A1c (4.5-6.2) % Calcium 7.6 L (8.5-10.1) mg/dL Total Bilirubin 0.1 L (0.2-1.0) mg/dL AST 17 (15-37) IU/L ALT 26 (14-63) IU/L Alkaline Phosphatase 54 (46-116) U/L Troponin I < 0.050 (0.000-0.056) ng/mL Total Protein 6.8 (6.4-8.2) g/dL Albumin 3.5 (3.4-5.0) g/dL Globulin 3.3 (2.6-4.0) g/dL Albumin/Globulin Ratio 1.1 (0.9-1.6) Lipase 290 (73-393) U/L TSH 3rd Generation (0.36-3.74) uIU/mL HCG, Qual (NEG) SARS Virus RNA (PCR) (NEGATIVE) 10/16/19 10/16/19 10/16/19 Range/Units 12:15 12:15 12:15 WBC (4.0-11.0) K/uL RBC (4.30-5.90) M/uL Hgb (12.0-16.0) g/dL Hct (36.0-46.0) % MCV (80.0-98.0) fL MCH (27.0-32.0) pg MCHC (31.0-37.0) g/dL RDW Std Deviation (28.0-62.0) fl RDW Coeff of Kirsten (11.0-15.0) % Plt Count (150-400) K/uL MPV (7.40-12.00) fL Neut % (Auto) (48.0-80.0) % Lymph % (Auto) (16.0-40.0) % [place] % (Auto) (0.0-15.0) % Eos % (Auto) (0.0-7.0) % Baso % (Auto) (0.0-1.5) % Neut # (Auto) (1.4-5.7) K/uL Lymph # (Auto) (0.6-2.4) K/uL [place] # (Auto) (0.0-0.8) K/uL Eos # (Auto) (0.0-0.7) K/uL Baso # (Auto) (0.0-0.1) K/uL Nucleated RBC % /100WBC Nucleated RBCs # K/uL INR Sodium (136-145) mmol/L Potassium (3.5-5.1) mmol/L Chloride (98-107) mmol/L Carbon Dioxide (21.0-32.0) mmol/L BUN (7.0-18.0) mg/dL Creatinine (0.6-1.0) mg/dL Est Cr Clr Drug Dosing mL/min Estimated GFR (MDRD) ml/min Glucose (74-106) mg/dL Hemoglobin A1c 6.0 (4.5-6.2) % Calcium (8.5-10.1) mg/dL Total Bilirubin (0.2-1.0) mg/dL AST (15-37) IU/L ALT (14-63) IU/L Alkaline Phosphatase (46-116) U/L Troponin I (0.000-0.056) ng/mL Total Protein (6.4-8.2) g/dL Albumin (3.4-5.0) g/dL Globulin (2.6-4.0) g/dL Albumin/Globulin Ratio (0.9-1.6) Lipase (73-393) U/L TSH 3rd Generation 0.40 (0.36-3.74) uIU/mL HCG, Qual NEGATIVE (NEG) SARS Virus RNA (PCR) (NEGATIVE) 10/16/19 Range/Units 14:40 WBC (4.0-11.0) K/uL RBC (4.30-5.90) M/uL Hgb (12.0-16.0) g/dL Hct (36.0-46.0) % MCV (80.0-98.0) fL MCH (27.0-32.0) pg MCHC (31.0-37.0) g/dL RDW Std Deviation (28.0-62.0) fl RDW Coeff of Kirsten (11.0-15.0) % Plt Count (150-400) K/uL MPV (7.40-12.00) fL Neut % (Auto) (48.0-80.0) % Lymph % (Auto) (16.0-40.0) % [place] % (Auto) (0.0-15.0) % Eos % (Auto) (0.0-7.0) % Baso % (Auto) (0.0-1.5) % Neut # (Auto) (1.4-5.7) K/uL Lymph # (Auto) (0.6-2.4) K/uL [place] # (Auto) (0.0-0.8) K/uL Eos # (Auto) (0.0-0.7) K/uL Baso # (Auto) (0.0-0.1) K/uL Nucleated RBC % /100WBC Nucleated RBCs # K/uL INR Sodium (136-145) mmol/L Potassium (3.5-5.1) mmol/L Chloride (98-107) mmol/L Carbon Dioxide (21.0-32.0) mmol/L BUN (7.0-18.0) mg/dL Creatinine (0.6-1.0) mg/dL Est Cr Clr Drug Dosing mL/min Estimated GFR (MDRD) ml/min Glucose (74-106) mg/dL Hemoglobin A1c (4.5-6.2) % Calcium (8.5-10.1) mg/dL Total Bilirubin (0.2-1.0) mg/dL AST (15-37) IU/L ALT (14-63) IU/L Alkaline Phosphatase (46-116) U/L Troponin I (0.000-0.056) ng/mL Total Protein (6.4-8.2) g/dL Albumin (3.4-5.0) g/dL Globulin (2.6-4.0) g/dL Albumin/Globulin Ratio (0.9-1.6) Lipase (73-393) U/L TSH 3rd Generation (0.36-3.74) uIU/mL HCG, Qual (NEG) SARS Virus RNA (PCR) NEGATIVE (NEGATIVE) Result Diagrams: 10/16/19 11:26 10/16/19 12:15 Sepsis Event Note - Evaluation Sepsis Screening Result: No Definite Risk - Focused Exam Vital Signs: Vital Signs Temp Pulse Resp BP BP Pulse Ox 10/16/19 13:45 73 17 150/101 H 100 10/16/19 13:15 86 18 132/82 100 10/16/19 12:09 153/87 H 10/16/19 12:02 161/97 H 10/16/19 11:26 97.1 F 89 20 150/102 H 99 - Problem List (1) Acute upper GI bleeding SNOMED Code(s): 00773524 ICD Code: K92.2 - GASTROINTESTINAL HEMORRHAGE, UNSPECIFIED Status: Acute Current Visit: Yes (2) Chest pain SNOMED Code(s): 19709582 ICD Code: R07.9 - CHEST PAIN, UNSPECIFIED Status: Acute Current Visit: Yes (3) Hematemesis SNOMED Code(s): 2824436 ICD Code: K92.0 - HEMATEMESIS Status: Acute Current Visit: Yes Problem List Initiated/Reviewed/Updated: Yes Orders Last 24hrs: Active Orders 24 hr Category Date Time Status Admission Status [Patient Status] [ADT] Stat ADT 10/16/19 14:04 Active Antiembolic Devices [RC] PER UNIT ROUTINE Care 10/16/19 14:56 Active Intake and Output [RC] QSHIFT Care 10/16/19 14:55 Active Oxygen Therapy [RC] PRN Care 10/16/19 14:55 Active Telemetry Monitoring [Cardiac Monitoring] [RC] . Care 10/16/19 14:57 Active DIRECTED Up With Assistance [RC] ASDIRECTED Care 10/16/19 14:55 Active VTE/DVT Education [RC] PER UNIT ROUTINE Care 10/16/19 14:55 Active Vital Signs [RC] Q4H Care 10/16/19 14:55 Active Clear Liquid Diet [DIET] Diet 10/16/19 Lunch Active HEMOGLOBIN/HEMATOCRIT,HH [HEME] Routine Lab 10/16/19 22:00 Ordered LIPID PANEL [CHEM] AM Lab 10/17/19 05:11 Ordered TROPONIN I [CHEM] Q6H Lab 10/16/19 16:00 Ordered TROPONIN I [CHEM] Q6H Lab 10/16/19 22:00 Ordered Acetaminophen [TylenoL] Med 10/16/19 14:55 Active 650 mg PO Q4H PRN Morphine Med 10/16/19 14:55 Active 2 mg IVPUSH Q2H PRN Nitroglycerin [Nitrostat] Med 10/16/19 11:56 Active 0.4 mg SL Q5M PRN Ondansetron [Zofran] Med 10/16/19 14:55 Active 4 mg IVPUSH Q4H PRN Pantoprazole [ProTONIX IV] 40 mg Med 10/16/19 21:00 Active Sodium Chloride 0.9% [Normal Saline] 10 ml IV Q12HR Sodium Chloride 0.9% [Saline Flush] Med 10/16/19 14:58 Active 2.5 ml FLUSH ASDIRECTED PRN Saline Lock Insert [OM.PC] Stat Oth 10/16/19 11:26 Ordered Sequential Compression Device [OM.PC] Per Unit Routine Oth 10/16/19 14:56 Ordered Resuscitation Status Routine Resus Stat 10/16/19 14:55 Ordered Medication Orders Acetaminophen (Tylenol) 650 mg PO Q4H PRN PRN Reason: Pain (Mild 1-3)/fever Pantoprazole Sodium 40 mg/ (Sodium Chloride) 10 mls @ 60 mls/hr IV Q12HR FREDDIE Morphine Sulfate (Morphine) 2 mg IVPUSH Q2H PRN PRN Reason: chest pain only Stop: 10/17/19 14:56 Nitroglycerin (Nitrostat) 0.4 mg SL Q5M PRN PRN Reason: Chest Pain Last Admin: 10/16/19 12:09 Dose: 0.4 mg Documented by: Admin: 10/16/19 12:02 Dose: 0.4 mg Documented by: DULCE Ondansetron HCl (Zofran) 4 mg IVPUSH Q4H PRN PRN Reason: nausea Sodium Chloride (Saline Flush) 2.5 ml FLUSH ASDIRECTED PRN PRN Reason: Keep Vein Open Assessment/Plan Comment:: This 34 year old female admitted with chest pain and hematemesis 1. Acute upper GI bleed/ Hematemesis: - Protonix IV BID - GI cocktail now and every 4 hours PRN pain - Monitor hgb this evening - Consult Dr Bernstein, general surgery for possible endoscopy - CL diet for now, NPO after midnight. - Obtain UA due to flank pain - Obtain stool for hemoccult and H pylori 2. Chest pain - Monitor on telemetry - Trend troponins - Obtain TSH, A1c and lipid panel - Monitor BP, seems elevated, is this remains elevated may need to consider treatment VTE prophylaxis: SCDs and ambulation Dispo: 1-2 days
[2019-10-16] MEDS ORDERED: Alum Hydrox/Mag Hydrox/Simeth 15 ML, Lidocaine 2% 5 ML PO ONE ×2 (16:19)
[2019-10-16] MEDS ORDERED: Alum Hydrox/Mag Hydrox/Simeth 15 ML, Lidocaine 2% 5 ML PO PRN ×2 (16:24)
--- NOTE | 2019-10-16 17:36 | PCM.SN.2 ---
- Free Text/Narrative Note: pt seen, chart reviewed; co chest pain, troponin and ck-mb were -ve; with black tarry stool, pt would benefit from egd/colonoscopy; if dc over the weekend, would zaheer more than happy to see pt in office to schedule outpatient endoscopy study; thanks for the consult and care of this pleasent pt; recall if question; [id number]
--- NOTE | 2019-10-16 18:56 | CONS ---
DATE OF CONSULTATION: 10/16/2019 DATE OF : 1985 PRIMARY CARE PHYSICIAN: None PCP REASON FOR CONSULTATION: Consult was called, the patient is seen shortly after. Consulting question is coffee-ground emesis. HISTORY OF PRESENT ILLNESS: The patient is a 34-year-old lady and morbidly obese with a BMI over 46.1 admitted through the emergency room to medical service for a chest pain and coffee-ground emesis. Denied bright red blood per rectum. Denied shortness of breath and denied syncope episode and denied prior episode. The patient remarked that she has been taking NSAIDs for abdominal pain. PAST MEDICAL HISTORY: Significant for NH, CVA, hypertension. PAST SURGICAL HISTORY: No endoscopy. SOCIAL HISTORY: The patient is a smoker. PHYSICAL EXAMINATION: GENERAL: A very pleasant lady, resting in bed comfortably, and smiled to doctor. HEENT: Normocephalic and atraumatic. Sclerae anicteric. LUNGS: Clear to auscultation. HEART: Regular rate and rhythm. ABDOMEN: Soft, nondistended. No pulsating tender midline abdominal structure. LABORATORY DATA: Upon consultation, white count is 6.6, H and H are 13 and 39, and platelets are 292. INR was 0.96. IMPRESSION: Coffee-ground emesis. No bright red blood per rectum. No syncope and is also being worked up for chest pain. The patient does not seem to be urgently in need of any endoscopy study, and we will be more than happy to offer her outpatient esophagogastroduodenoscopy or sometimes if with her situation also has black tarry stool, will benefit from also a colonoscopy. So if discharged over the weekend, the patient should be having a followup appointment in my office, and we will try to schedule her endoscopy study, both esophagogastroduodenoscopy and colonoscopy, and again there is no plan for inpatient esophagogastroduodenoscopy at the time of speaking. Thanks for the consult. We will sign off and recall if question. BARBARA / AYDIN /[id number]
[2019-10-16] MEDS: Pantoprazole 40 MG in Sodium Chloride 0.9% 10 ML IV SCH (20:13)
[2019-10-16] MEDS ORDERED: Pantoprazole 40 MG Vial IV SCH (23:00)
[2019-10-17] MEDS ORDERED: Sodium Chloride 0.9% 1,000 ML IV SCH (00:01)
[2019-10-17 06:39] LABS: BLOOD UREA NITROGEN,BUN 9 mg/dL (7.0-18.0); CARBON DIOXIDE,CO2 25.6 mmol/L (21.0-32.0); CHLORIDE,CL 107 mmol/L (98-107); GLUCOSE RANDOM 79 mg/dL (74-106); POTASSIUM,K 3.7 mmol/L (3.5-5.1); SODIUM,NA 142 mmol/L (136-145)
[2019-10-17] MEDS: Pantoprazole 40 MG in Sodium Chloride 0.9% 10 ML IV SCH (10:24)
[2019-10-17] MEDS ORDERED: Pantoprazole 40 MG Tab.CR PO SCH (10:47)
[2019-10-17 11:20] VITALS: BP 138/86; PULSE 68
[2019-10-17] MEDS ORDERED: Sucralfate 1 GM Tab PO SCH (11:30)
--- NOTE | 2019-10-17 13:02 | PCM.DCSUM1 ---
Discharge Summary - Hospital Course Brief History: This 34 year old female with pmh of obesity and tobacco use presented to the ED with concerns of chest pain and coffee ground emesis today. She reports she had a black stool a couple days ago and then today started having a burning heavy chest pain then she vomited, small streaking of bright red blood noted, but mostly coffee ground emesis, her last emesis was around 11 am today. She reports the pain was improved with Nitro in the ED, but it comes in waves. The pain does radiate to her back and she has some nausea. No diaphoresis or dyspnea. No fever or chills. No other abdominal pain. No urinary concerns, but reports CVA tenderness. No history of this in the past. She reports she has been taking more NSAIDs recently due to menses cramping. Rare alcohol use. Never had an EGD before. She denies history of DM, CAD or COPD. No family history of CAD, father had a pacemaker placed, but no [place]. She reports 1/2 ppd tobacco use and no recreational drug use. In the ED hgb 13.1. BMP WNL. Troponin negative. HCG negative COVID negative. CXR negative for acute card iopulmonary concerns. BP was noted to be elevated 150-160/90-100s, improved after Nitro x 2. pain improved with Nitro as well. Protonix and Zofran administered as well. EKG revealed SR with no acute ischemic changes. She will be admitted secondary to chest pain rule out ACS and acute upper GI bleed. Diagnosis: Stroke: No - Discharge Data Discharge Date: 10/17/19 Discharge Disposition: Home, Self-Care 01 Condition: Good - Referral to Home Health Primary Care Physician: PCP None - Discharge Diagnosis/Problem(s) (1) Acute upper GI bleeding SNOMED Code(s): 21309834 ICD Code: K92.2 - GASTROINTESTINAL HEMORRHAGE, UNSPECIFIED Status: Acute Priority: High Current Visit: Yes (2) Chest pain SNOMED Code(s): 30334958 ICD Code: R07.9 - CHEST PAIN, UNSPECIFIED Status: Acute Current Visit: Yes (3) Hematemesis SNOMED Code(s): 7446450 ICD Code: K92.0 - HEMATEMESIS Status: Acute Current Visit: Yes - Patient Summary/Data Consults: Consultations 10/16/19 16:22 Consult to Physician [CONS] Routine Hospital Course: Admitting Diagnoses: Chest pain Acute upper GI bleeding Discharge Diagnoses: Chest pain, likey gastritis Acute upper GI bleeding other PMH: Obesity Samra was admitted secondary to chest pain, burning and epigastric in nature. She was noted to have coffee ground emesis prior to arriving as well as a black stool 2 days ago. She reports increased use in NSAIDs at home. Hgb remained stable. She was started on protonix BID as well as Carafate. GI cocktail did help with pain. Dr Bernstein was consulted, who recommended outpatient endoscopy soon. She remained stable during her stay, se is tolerating diet well. No further bowel movements of emesis. She denies further chest pain. ACS ruled ot with telemetry monitoring and troponin negative x 3. She will be discharged home today with Carafate TID Protonic BID and GI cocktail PRN pain. Counseled on bland diet along with not taking NSAIDs and which medicines these include. Refrain from spicy, acidic foods for now. She is to follow up with Dr Bernstein and PCP as outpatient. Encouraged to return to the ED is bleeding happens again or abdominal pain worsens. - Patient Instructions Diet: GI Soft/Low Residue/Low Fiber (stay away from spicy or acidic foods, no coffee ) Activity: As Tolerated, No Strenuous Activities Driving: Do Not Drive (due to receiving narcotics, ok to drive tomorrow.) Showering/Bathing: May Shower Notify Provider of: Fever, Increased Pain, Swelling and Redness, Drainage, Nausea and/or Vomiting Other/Special Instructions: No NSAID medications, (Aleve, Ibuprofen, Motrin, Advil, Celebrex or Naproxen). Tylenol is OK. return to ER if more throwing up coffee ground appearing or bright red blood in vomit or bright red blood in bowel movements. - Discharge Plan *PRESCRIPTION DRUG MONITORING PROGRAM REVIEWED*: Not Applicable *COPY OF PRESCRIPTION DRUG MONITORING REPORT IN PATIENT ANTHONY: Not Applicable Prescriptions/Med Rec: Sucralfate [Carafate] 1 gm PO TIDAC #90 tablet GI Cocktail 10 ml PO Q4H PRN #240 ml PRN Reason: gastritis Pantoprazole [ProTONIX] 40 mg PO BIDAC #60 tab.cr Home Medications: Home Meds GI Cocktail 10 ml PO Q4H PRN #240 ml 10/17/19 [Rx] Pantoprazole [ProTONIX] 40 mg PO BIDAC #60 tab.cr 10/17/19 [Rx] Sucralfate [Carafate] 1 gm PO TIDAC #90 tablet 10/17/19 [Rx] Oxygen Therapy Mode: Room Air Patient Handouts: Gastritis, Adult, [id number], Upper Gastrointestinal Bleeding, Gastrointestinal Bleeding, [id number] Referrals: Flynn Bernstein MD [Physician] - 10/27/19 1:45 pm Ibrahima Moore MD [Physician] - 10/27/19 9:30 am - Discharge Summary/Plan Comment DC Time >30 min.: No - Patient Data Vitals - Most Recent: Last Vital Signs Temp 98.7 F 10/17/19 11:19 Pulse 68 10/17/19 11:19 Resp 16 10/17/19 11:19 BP 138/86 10/17/19 11:19 Pulse Ox 95 10/17/19 11:19 Weight - Most Recent: 122 kg I&O - Last 24 hours: Intake & Output 10/16/19 10/17/19 10/17/19 22:59 06:59 14:59 Intake Total 1240 Output Total 750 Balance 490 Lab Results - Last 24 hrs: Laboratory Results - last 24 hr 10/16/19 10/16/19 10/16/19 Range/Units 12:15 12:15 14:40 WBC (4.0-11.0) K/uL RBC (4.30-5.90) M/uL Hgb (12.0-16.0) g/dL Hct (36.0-46.0) % MCV (80.0-98.0) fL MCH (27.0-32.0) pg MCHC (31.0-37.0) g/dL RDW Std Deviation (28.0-62.0) fl RDW Coeff of Kirsten (11.0-15.0) % Plt Count (150-400) K/uL MPV (7.40-12.00) fL Neut % (Auto) (48.0-80.0) % Lymph % (Auto) (16.0-40.0) % [place] % (Auto) (0.0-15.0) % Eos % (Auto) (0.0-7.0) % Baso % (Auto) (0.0-1.5) % Neut # (Auto) (1.4-5.7) K/uL Lymph # (Auto) (0.6-2.4) K/uL [place] # (Auto) (0.0-0.8) K/uL Eos # (Auto) (0.0-0.7) K/uL Baso # (Auto) (0.0-0.1) K/uL Nucleated RBC % /100WBC Nucleated RBCs # K/uL Sodium (136-145) mmol/L Potassium (3.5-5.1) mmol/L Chloride (98-107) mmol/L Carbon Dioxide (21.0-32.0) mmol/L BUN (7.0-18.0) mg/dL Creatinine (0.6-1.0) mg/dL Est Cr Clr Drug Dosing mL/min Estimated GFR (MDRD) ml/min Glucose (74-106) mg/dL Hemoglobin A1c 6.0 (4.5-6.2) % Calcium (8.5-10.1) mg/dL Troponin I (0.000-0.056) ng/mL Triglycerides (0-200) mg/dL Cholesterol (50-200) mg/dL LDL Cholesterol, Calc (60-180) mg/dL VLDL Cholesterol (5-55) mg/dL HDL Cholesterol (40-60) mg/dL Cholesterol/HDL Ratio (3.3-6.0) TSH 3rd Generation 0.40 (0.36-3.74) uIU/mL Urine Color Urine Appearance Urine pH (5.0-8.0) Ur Specific [place] (1.001-1.035) Urine Protein (NEGATIVE) mg/dL Urine Glucose (UA) (NEGATIVE) mg/dL Urine Ketones (NEGATIVE) mg/dL Urine Occult Blood (NEGATIVE) Urine Nitrite (NEGATIVE) Urine Bilirubin (NEGATIVE) Urine Urobilinogen (<2.0) EU/dL Ur Leukocyte Esterase (NEGATIVE) Urine RBC (0-2/HPF) Urine WBC (0-5/HPF) Ur Epithelial Cells (NONE-FEW) Urine Bacteria (NEGATIVE) SARS Virus RNA (PCR) NEGATIVE (NEGATIVE) 10/16/19 10/16/19 10/16/19 Range/Units 16:17 16:25 22:08 WBC (4.0-11.0) K/uL RBC (4.30-5.90) M/uL Hgb 12.7 (12.0-16.0) g/dL Hct 39.2 (36.0-46.0) % MCV (80.0-98.0) fL MCH (27.0-32.0) pg MCHC (31.0-37.0) g/dL RDW Std Deviation (28.0-62.0) fl RDW Coeff of Kirsten (11.0-15.0) % Plt Count (150-400) K/uL MPV (7.40-12.00) fL Neut % (Auto) (48.0-80.0) % Lymph % (Auto) (16.0-40.0) % [place] % (Auto) (0.0-15.0) % Eos % (Auto) (0.0-7.0) % Baso % (Auto) (0.0-1.5) % Neut # (Auto) (1.4-5.7) K/uL Lymph # (Auto) (0.6-2.4) K/uL [place] # (Auto) (0.0-0.8) K/uL Eos # (Auto) (0.0-0.7) K/uL Baso # (Auto) (0.0-0.1) K/uL Nucleated RBC % /100WBC Nucleated RBCs # K/uL Sodium (136-145) mmol/L Potassium (3.5-5.1) mmol/L Chloride (98-107) mmol/L Carbon Dioxide (21.0-32.0) mmol/L BUN (7.0-18.0) mg/dL Creatinine (0.6-1.0) mg/dL Est Cr Clr Drug Dosing mL/min Estimated GFR (MDRD) ml/min Glucose (74-106) mg/dL Hemoglobin A1c (4.5-6.2) % Calcium (8.5-10.1) mg/dL Troponin I < 0.050 (0.000-0.056) ng/mL Triglycerides (0-200) mg/dL Cholesterol (50-200) mg/dL LDL Cholesterol, Calc (60-180) mg/dL VLDL Cholesterol (5-55) mg/dL HDL Cholesterol (40-60) mg/dL Cholesterol/HDL Ratio (3.3-6.0) TSH 3rd Generation (0.36-3.74) uIU/mL Urine Color YELLOW Urine Appearance HAZY Urine pH 5.5 (5.0-8.0) Ur Specific [place] >= 1.030 (1.001-1.035) Urine Protein NEGATIVE (NEGATIVE) mg/dL Urine Glucose (UA) NEGATIVE (NEGATIVE) mg/dL Urine Ketones NEGATIVE (NEGATIVE) mg/dL Urine Occult Blood SMALL H (NEGATIVE) Urine Nitrite NEGATIVE (NEGATIVE) Urine Bilirubin NEGATIVE (NEGATIVE) Urine Urobilinogen 0.2 (<2.0) EU/dL Ur Leukocyte Esterase NEGATIVE (NEGATIVE) Urine RBC 0-2 (0-2/HPF) Urine WBC 0-2 (0-5/HPF) Ur Epithelial Cells RARE (NONE-FEW) Urine Bacteria FEW (NEGATIVE) SARS Virus RNA (PCR) (NEGATIVE) 10/16/19 10/17/19 10/17/19 Range/Units 22:08 06:02 06:02 WBC 7.78 (4.0-11.0) K/uL RBC 3.98 L (4.30-5.90) M/uL Hgb 12.6 (12.0-16.0) g/dL Hct 38.6 (36.0-46.0) % MCV 97.0 (80.0-98.0) fL MCH 31.7 (27.0-32.0) pg MCHC 32.6 (31.0-37.0) g/dL RDW Std Deviation 55.9 (28.0-62.0) fl RDW Coeff of Kirsten 16 H (11.0-15.0) % Plt Count 289 (150-400) K/uL MPV 9.10 (7.40-12.00) fL Neut % (Auto) 44.0 L (48.0-80.0) % Lymph % (Auto) 47.0 H (16.0-40.0) % [place] % (Auto) 6.3 (0.0-15.0) % Eos % (Auto) 2.3 (0.0-7.0) % Baso % (Auto) 0.4 (0.0-1.5) % Neut # (Auto) 3.4 (1.4-5.7) K/uL Lymph # (Auto) 3.7 H (0.6-2.4) K/uL [place] # (Auto) 0.5 (0.0-0.8) K/uL Eos # (Auto) 0.2 (0.0-0.7) K/uL Baso # (Auto) 0.0 (0.0-0.1) K/uL Nucleated RBC % 0.0 /100WBC Nucleated RBCs # 0 K/uL Sodium 142 (136-145) mmol/L Potassium 3.7 (3.5-5.1) mmol/L Chloride 107 (98-107) mmol/L Carbon Dioxide 25.6 (21.0-32.0) mmol/L BUN 9 (7.0-18.0) mg/dL Creatinine 0.8 (0.6-1.0) mg/dL Est Cr Clr Drug Dosing 83.95 mL/min Estimated GFR (MDRD) > 60.0 ml/min Glucose 79 (74-106) mg/dL Hemoglobin A1c (4.5-6.2) % Calcium 7.5 L (8.5-10.1) mg/dL Troponin I < 0.050 (0.000-0.056) ng/mL Triglycerides 155 (0-200) mg/dL Cholesterol 200 (50-200) mg/dL LDL Cholesterol, Calc 118 (60-180) mg/dL VLDL Cholesterol 31 (5-55) mg/dL HDL Cholesterol 51 (40-60) mg/dL Cholesterol/HDL Ratio 3.9 (3.3-6.0) TSH 3rd Generation (0.36-3.74) uIU/mL Urine Color Urine Appearance Urine pH (5.0-8.0) Ur Specific [place] (1.001-1.035) Urine Protein (NEGATIVE) mg/dL Urine Glucose (UA) (NEGATIVE) mg/dL Urine Ketones (NEGATIVE) mg/dL Urine Occult Blood (NEGATIVE) Urine Nitrite (NEGATIVE) Urine Bilirubin (NEGATIVE) Urine Urobilinogen (<2.0) EU/dL Ur Leukocyte Esterase (NEGATIVE) Urine RBC (0-2/HPF) Urine WBC (0-5/HPF) Ur Epithelial Cells (NONE-FEW) Urine Bacteria (NEGATIVE) SARS Virus RNA (PCR) (NEGATIVE) Med Orders - Current: Current Medications Acetaminophen (Tylenol) 650 mg PO Q4H PRN PRN Reason: Pain (Mild 1-3)/fever Al Hydroxide/Mg Hydroxide 15 (ml/ Lidocaine HCl 5 ml) 0 ml PO Q4H PRN PRN Reason: epigastric pain Morphine Sulfate (Morphine) 2 mg IVPUSH Q2H PRN PRN Reason: chest pain only Stop: 10/17/19 14:56 Last Admin: 10/16/19 23:45 Dose: 2 mg Documented by: Ondansetron HCl (Zofran) 4 mg IVPUSH Q4H PRN PRN Reason: nausea Pantoprazole Sodium (Protonix) 40 mg PO BIDAC [facility] Last Admin: 10/17/19 11:04 Dose: 40 mg Documented by: Sodium Chloride (Saline Flush) 2.5 ml FLUSH ASDIRECTED PRN PRN Reason: Keep Vein Open Sucralfate (Carafate) 1 gm PO QIDACANDBED [facility] Last Admin: 10/17/19 11:04 Dose: 1 gm Documented by: Discontinued Medications Al Hydroxide/Mg Hydroxide 15 (ml/ Lidocaine HCl 5 ml) 0 ml PO ONETIME ONE Stop: 10/16/19 16:20 Last Admin: 10/16/19 16:53 Dose: 20 each Documented by: Pantoprazole Sodium 40 mg/ (Sodium Chloride) 20 mls @ 420 mls/hr IVPUSH ONETIME ONE Stop: 10/16/19 11:29 Last Admin: 10/16/19 11:51 Dose: 420 mls/hr Documented by: Pantoprazole Sodium 40 mg/ (Sodium Chloride) 10 mls @ 60 mls/hr IV Q12HR [facility] Last Admin: 10/17/19 10:24 Dose: 60 mls/hr Documented by: Sodium Chloride (Normal Saline) 1,000 mls @ 75 mls/hr IV Q13H [facility] Nitroglycerin (Nitrostat) 0.4 mg SL Q5M PRN PRN Reason: Chest Pain Last Admin: 10/16/19 16:17 Dose: 0.4 mg Documented by: Ondansetron HCl (Zofran) Confirm Administered Dose 4 mg .ROUTE .STK-MED ONE Stop: 10/16/19 11:38 Last Admin: 10/16/19 11:54 Dose: Not Given Documented by: Ondansetron HCl (Zofran) 4 mg IVPUSH ONETIME ONE Stop: 10/16/19 11:52 Last Admin: 10/16/19 11:55 Dose: 4 mg Documented by: Sodium Chloride (Saline Flush) 10 ml FLUSH ASDIRECTED PRN PRN Reason: Keep Vein Open Last Admin: 10/16/19 11:55 Dose: 10 ml Documented by: Sodium Chloride (Saline Flush) 2.5 ml FLUSH ASDIRECTED PRN PRN Reason: Keep Vein Open Last Admin: 10/16/19 11:55 Dose: 2.5 ml Documented by: - Exam General: Reports: Alert, Oriented, Cooperative, No Acute Distress Lungs: Reports: Clear to Auscultation, Normal Respiratory Effort Cardiovascular: Reports: Regular Rate, Regular Rhythm GI/Abdominal Exam: Normal Bowel Sounds, Soft, Tender (mild tenderness to palpation epigastric and LUQ, improved today) Back Exam: Reports: Normal Inspection, Full Range of Motion Extremities: Normal Inspection, Normal Range of Motion, Non-Tender, No Pedal Edema Neurological: Reports: No New Focal Deficit Psy/Mental Status: Reports: Alert, Normal Affect, Normal Mood
== END 2019-10-17 15:05 | disposition home or self-care (01) ==
LOC: MW.ED 11:21 → MW.MS 14:38
PROVIDERS: ADMIT Student in an Organized Health Care Education/Training Program; ATTEND Student in an Organized Health Care Education/Training Program
DX: R07.89 Other chest pain (principal); K92.2 Gastrointestinal hemorrhage, unspecified; R19.5 Other fecal abnormalities; K92.0 Hematemesis; E66.01 Morbid (severe) obesity due to excess calories; I10 Essential (primary) hypertension; F17.210 Nicotine dependence, cigarettes, uncomplicated; Z20.828 Contact with and (suspected) exposure to other viral communicable diseases; Z68.42 Body mass index [BMI] 45.0-49.9, adult; Z79.899 Other long term (current) drug therapy
CPT/HCPCS: 36415; 71045; 80048; 80053; 80061; 81001; 83036; 83690; 84443; 84484; 84703; 85014; 85018; 85025; 85610; 87635; 93005; 96374; 96375; 99285; A9270; C9113; J2270; J2405; J7050; 96376; 99283; G0378; U0002

== ENCOUNTER 2020-05-26 19:35 | Emergency (ER) | payer OTHER ==
[2020-05-26] MEDS ORDERED: Sodium Chloride 0.9% 1,000 ML IV ONE (19:43)
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
[2020-05-26 20:15] VITALS: BP 149/84; PULSE 113
[2020-05-26 20:31] LABS: BLOOD UREA NITROGEN,BUN 5 mg/dL (7.0-18.0); CARBON DIOXIDE,CO2 25.5 mmol/L (21.0-32.0); CHLORIDE,CL 109 mmol/L (98-107); GLUCOSE RANDOM 80 mg/dL (74-106); POTASSIUM,K 4.8 mmol/L (3.5-5.1); SODIUM,NA 147 mmol/L (136-145)
== END 2020-05-26 21:00 | disposition left against medical advice (07) ==
LOC: MW.ED 19:35
DX: F10.129 Alcohol abuse with intoxication, unspecified (principal); E66.9 Obesity, unspecified; Y90.6 Blood alcohol level of 120-199 mg/100 ml; I10 Essential (primary) hypertension; Z68.42 Body mass index [BMI] 45.0-49.9, adult; Z53.8 Procedure and treatment not carried out for other reasons; V49.10XA Passenger injured in collision with unspecified motor vehicles in nontraffic accident, initial encounter; Y92.410 Unspecified street and highway as the place of occurrence of the external cause
CPT/HCPCS: 36415; 80053; 80305; 80307; 81003; 84703; 85025; 85610; 99284; J7030; 99283

== ENCOUNTER 2020-05-26 21:24 | Emergency (ER) | payer OTHER ==
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
[2020-05-26 22:54] VITALS: BP 148/83; PULSE 78
== END 2020-05-26 22:50 | disposition home or self-care (01) ==
LOC: MW.ED 21:24
DX: S30.0XXA Contusion of lower back and pelvis, initial encounter (principal); E66.9 Obesity, unspecified; Z68.30 Body mass index [BMI] 30.0-30.9, adult; V49.10XA Passenger injured in collision with unspecified motor vehicles in nontraffic accident, initial encounter; Y92.410 Unspecified street and highway as the place of occurrence of the external cause
CPT/HCPCS: 71045; 71045-26; 72170; 72170-26; 99283; 99284